=== PATIENT | female | born 1935 | race Caucasian/White ===

== ENCOUNTER 2016-12-13 14:04 | Inpatient (IN) | payer MEDICARE, BC ==
[2016-12-13] MEDS ORDERED: Polyethylene Glycol 3350 Powder 17 GM Packet PO PRN (14:48)
[2016-12-13] MEDS ORDERED: Tuberculin, PPD 5 Units/0.1 ML 1 ML MDV IDERM ONE (14:52)
[2016-12-13] MEDS: traMADol 50 MG Tab PO PRN ×2 (14:53→20:52)
[2016-12-13] MEDS ORDERED: SODIUM CHLORIDE EYEBOTH PRN (14:54)
--- NOTE | 2016-12-13 15:05 | PCM.HP ---
H&P History of Present Illness - General Date of Service: 12/13/16 Admit Problem/Dx: Admission Diagnosis/Problem Admission Diagnosis/Problem Pain management Source of Information: Patient History Limitations: Reports: No Limitations - History of Present Illness Initial Comments - Free Text/Narative: Pt is 81 year old female with PMH of HTN and Glaucoma, who has had Left knee replacement done by on 01/09/[address] [facility]. Pt has had uneventful post op period and has been doing her rehab well at [facility]. She is presently transferred to [facility] for swing bed level of care for Rehabilitation. Pt claims that her pain in the left knee is much better today. Has been weight bearing on the left knee. No fever or chills. No cough, shortness of breath or dysuria. Pt did have fluid over load post surgery and needed IV lasix as she was having nocturnal hypoxia. Pt has no dyspnea presently. Improves with: Reports: None Worsens with: Reports: None Associated Symptoms: Denies: Confusion, Cough, Fever/Chills, Headaches, Nausea/ Vomiting, Rash, Shortness of Breath, Weakness Left Middle Knee Pain Score (Numeric/FACES): 1 - Related Data Allergies/Adverse Reactions: Allergies Allergy/AdvReac Type Severity Reaction Status Date / Time Penicillins Allergy Itching Verified 09/10/15 20:24 Home Medications: Home Meds Benazepril [Lotensin] 5 mg PO BEDTIME 09/10/15 [History] Brimonidine Tartrate [Alphagan P 0.1% Ophth Soln] 1 drop DAILY 09/10/15 [History ] Hydrochlorothiazide [Hydrochlorothiazide] 25 mg PO DAILY 09/10/15 [History] Latanoprost [Latanoprost] 1 drop DAILY 09/10/15 [History] Past Medical History HEENT History: Reports: Cataract, Glaucoma, Impaired Vision Cardiovascular History: Reports: Heart Murmur, Hypertension Respiratory History: Reports: None Musculoskeletal History: Reports: Back Pain, Chronic - Infectious Disease History Infectious Disease History: Reports: Chicken Pox, Measles, Pertussis (Whooping Cough), Rheumatic Fever, Rubella - Past Surgical History HEENT Surgical History: Reports: Eye Surgery, Tonsillectomy Social & Family History - Tobacco Use Smoking Status *Q: Never Smoker Second Hand Smoke Exposure: No - Caffeine Use Caffeine Use: Reports: Coffee - Recreational Drug Use Recreational Drug Use: No H&P Review of Systems - Review of Systems: Review Of Systems: See Below General: Denies: Fever, Chills, Night Sweats HEENT: Denies: Rhinitis, Sinus Congestion, Sore Throat Pulmonary: Denies: Shortness of Breath, Wheezing, Cough, Sputum Cardiovascular: Denies: Chest Pain, Lightheadedness Gastrointestinal: Denies: Abdominal Pain, Nausea, Vomiting Genitourinary: Denies: Dysuria, Frequency Musculoskeletal: Denies: Neck Pain, Shoulder Pain, Joint Pain, Joint Swelling Skin: Denies: Pruritis, Rash Psychiatric: Denies: Confusion, Depression Neurological: Denies: Confusion, Dizziness, Headache Exam - Exam Exam: See Below - Vital Signs Vital Signs: Last Vital Signs Temp 97.8 F 12/13/16 14:10 Pulse 94 12/13/16 14:10 Resp 16 12/13/16 14:10 BP 152/73 H 12/13/16 14:10 Pulse Ox 94 L 12/13/16 14:10 Weight: 65.862 kg - Exam General: Alert, Oriented, 4 HEENT: PERRLA, Hearing Intact, Mucosa Moist & [place], Nares Patent, Normal Nasal Septum, Posterior Pharynx Clear, Conjunctiva Clear, EOMI, EACs Clear, TMs Clear Neck: Supple, Trachea Midline, 2 Lungs: Clear to Auscultation, Normal Respiratory Effort Cardiovascular: Regular Rate, Regular Rhythm Abdomen: Normal Bowel Sounds, Soft Back Exam: Normal Inspection, Full Range of Motion, NT Extremities: Edema, Other (left knee": there is dressing seen on the left knee.No bleeding or soaking. Pt does have good ROM with minimal pain. ) Peripheral Pulses: 2+: Radial (L), Radial (R) Neuro Extensive - Motor, Sensory, Reflexes: CN II-XII Intact, Normal Gait, Normal Reflexes *Q Meaningful Use (ADM) - VTE *Q VTE Criteria *Q: - Stroke *Q Stroke Criteria *Q: - AMI *Q AMI Criteria *Q: - Problem List (1) S/P knee replacement SNOMED Code(s): 289964477 ICD Code: Z96.659 - PRESENCE OF UNSPECIFIED ARTIFICIAL KNEE JOINT Status: Acute Current Visit: Yes Problem List Initiated/Reviewed/Updated: Yes Orders Last 24hrs: Active Orders 24 hr Category Date Time Status Patient Status [ADT] Routine ADT 12/13/16 14:52 Ordered OT Evaluation and Treatment [CONS] Routine Cons 12/13/16 14:52 Ordered PT Evaluation and Treatment [CONS] Routine Cons 12/13/16 14:52 Ordered Regular Diet [DIET] Diet 12/13/16 Dinner Ordered Acetaminophen [Tylenol Arthritis Pain] Med 12/13/16 14:51 Active 650 mg PO Q6H PRN Aspirin [Ecotrin] Med 12/14/16 08:00 Active 325 mg PO DAILY Benazepril [Lotensin] Med 12/13/16 20:00 Ordered 5 mg PO BEDTIME Benazepril [Lotensin] Med 12/14/16 08:00 Active 5 mg PO DAILY Brimonidine Tartrate [Alphagan P 0.1% Ophth Soln] Med 12/14/16 08:00 Ordered 1 drop EYEBOTH DAILY Calcium Carbonate/Vitamin D3 [Caltrate 600+D 1500 MG- Med 12/14/16 08:00 Active 400 Units] 1 tab PO DAILY Docusate Sodium/Sennosides [Senna Plus] Med 12/13/16 14:49 Active 0 - 2 tab PO DAILY PRN Hydrochlorothiazide Med 12/14/16 08:00 Active 25 mg PO DAILY Hydrochlorothiazide Med 12/14/16 08:00 Ordered 25 mg PO DAILY Latanoprost [Xalatan 0.005% Ophth Soln] Med 12/13/16 20:00 Active 0 - 1 ml EYEBOTH BEDTIME Latanoprost [Xalatan 0.005% Ophth Soln] Med 12/14/16 08:00 Ordered 1 drop EYEBOTH DAILY Lutein/Minerals/Vit A,C & E [Ocuvite] Med 12/14/16 08:00 Active 1 each PO DAILY Non-Formulary Medication [NF Drug] Med 12/13/16 14:54 Active 0 - 1 each EYEBOTH BEDTIME PRN Non-Formulary Medication [NF Drug] Med 12/14/16 08:00 Active 0 - 1 each EYEBOTH DAILY Polyethylene Glycol 3350 [MiraLAX] Med 12/13/16 14:48 Active 17 gm PO DAILY PRN Tuberculin, PPD [Aplisol] Med 12/13/16 14:52 Once 5 unit IDERM ONETIME ONE traMADol [Ultram] Med 12/13/16 14:36 Active 50 mg PO Q6H PRN Resuscitation Status Routine Resus Stat 12/13/16 14:52 Ordered Medication Orders Acetaminophen (Tylenol Arthritis Pain) 650 mg PO Q6H PRN PRN Reason: MILD PAIN Aspirin (Ecotrin) 325 mg PO DAILY GABBIE Benazepril HCl (Lotensin) 5 mg PO DAILY GABBIE Brimonidine Tartrate (Alphagan P 0.1% Ophth Soln) ml EYEBOTH DAILY GABBIE Calcium Carbonate (Caltrate 600+D 1500 Mg-400 Units) 1 tab PO DAILY GABBIE Hydrochlorothiazide (Hydrochlorothiazide) 25 mg PO DAILY GABBIE Hydrochlorothiazide (Hydrochlorothiazide) 25 mg PO DAILY GABBIE Latanoprost (Xalatan 0.005% Ophth Soln) 0 - 1 ml EYEBOTH BEDTIME GABBIE Latanoprost (Xalatan 0.005% Ophth Soln) ml EYEBOTH DAILY GABBIE Multivitamins/Minerals (Ocuvite) 1 each PO DAILY GABBIE Sodium Chloride (Ointment) 0 - 1 each EYEBOTH BEDTIME PRN PRN Reason: EYE Brimonidine 0.2% (Solution) 0 - 1 each EYEBOTH DAILY GABBIE Non-Formulary Medication (Benazepril [Lotensin]) 5 mg PO BEDTIME GABBIE Polyethylene Glycol (Miralax) 17 gm PO DAILY PRN PRN Reason: CONSTIPATION Senna/Docusate Sodium (Senna Plus) 0 - 2 tab PO DAILY PRN PRN Reason: CONSTIPATION Tramadol HCl (Ultram) 50 mg PO Q6H PRN PRN Reason: MODERATE PAIN Last Admin: 12/13/16 14:53 Dose: 50 mg Tuberculin PPD (Aplisol) 5 unit IDERM ONETIME ONE Stop: 12/13/16 14:53 Assessment/Plan Comment:: Assessment: S/P left knee replacement admitted under swing bed for rehabilitation. Plan: Pt is clinically doing well. Plan is to admit under swing bed. Start OT and PT. She has very good Rehab potential. Once she has reached strength to walk without discomfort and able to ADLs without pain, Will have her discharge home. Plan is to stop oxycodone and keep her tramadol for pain control. Also will monitor nocturnal pulse oxy and will only start oxygen if her SPO2 drops below 92%. Advised to use intensive spirometry every 2-3 hrs to prevent pneumonia.
[2016-12-13] MEDS ORDERED: BENAZEPRIL 5 MG PO SCH (20:00)
[2016-12-13] MEDS: Latanoprost 0.005% Ophth Soln 2.5 ML Bottle EYEBOTH SCH (20:13)
[2016-12-13] MEDS: Acetaminophen 650 MG Tab.ER PO PRN (20:51)
[2016-12-14] MEDS: BRIMONIDINE 0.2% EYEBOTH SCH (07:34)
[2016-12-14] MEDS: Calcium Carbonate/Vitamin D3 1500 MG-400 Units Tab PO SCH (07:34)
[2016-12-14] MEDS: Benazepril 10 MG Tab PO SCH (07:35)
[2016-12-14] MEDS: Hydrochlorothiazide 25 MG Tab PO SCH (07:35)
[2016-12-14] MEDS: Aspirin 325 MG Tab.EC PO SCH (07:35)
[2016-12-14] MEDS: Lutein/Minerals/Vitamins A, C & E Tab PO SCH (07:36)
[2016-12-14] MEDS: traMADol 50 MG Tab PO PRN ×2 (07:36→20:03)
[2016-12-14] MEDS: Acetaminophen 650 MG Tab.ER PO PRN ×3 (07:37→20:11)
[2016-12-14] MEDS ORDERED: Latanoprost 0.005% Ophth Soln 2.5 ML Bottle EYEBOTH SCH (08:00)
[2016-12-14] MEDS ORDERED: Hydrochlorothiazide 25 MG Tab PO SCH (08:00)
[2016-12-14] MEDS ORDERED: Brimonidine 0.1% Ophth Soln 5 ML Bottle EYEBOTH SCH (08:00)
[2016-12-14] MEDS: Latanoprost 0.005% Ophth Soln 2.5 ML Bottle EYEBOTH SCH (20:06)
[2016-12-14] MEDS: SODIUM CHLORIDE EYEBOTH PRN (20:28)
[2016-12-14] MEDS ORDERED: Metoprolol Tartrate 25 MG Tab PO ONE (22:11)
[2016-12-15] MEDS: traMADol 50 MG Tab PO PRN ×4 (02:32→23:43)
[2016-12-15] MEDS: Acetaminophen 650 MG Tab.ER PO PRN ×2 (08:15→20:21)
[2016-12-15] MEDS: Hydrochlorothiazide 25 MG Tab PO SCH (08:17)
[2016-12-15] MEDS: Lutein/Minerals/Vitamins A, C & E Tab PO SCH (08:17)
[2016-12-15] MEDS: Calcium Carbonate/Vitamin D3 1500 MG-400 Units Tab PO SCH (08:17)
[2016-12-15] MEDS: Aspirin 325 MG Tab.EC PO SCH (08:17)
[2016-12-15] MEDS: Benazepril 10 MG Tab PO SCH ×2 (08:17→09:38)
[2016-12-15] MEDS: BRIMONIDINE 0.2% EYEBOTH SCH (08:26)
[2016-12-15] MEDS: Latanoprost 0.005% Ophth Soln 2.5 ML Bottle EYEBOTH SCH (20:25)
[2016-12-16] MEDS: traZODone 100 MG Tab PO PRN ×2 (00:21→20:44)
[2016-12-16] MEDS: Hydrochlorothiazide 25 MG Tab PO SCH (07:49)
[2016-12-16] MEDS: Benazepril 10 MG Tab PO SCH (07:50)
[2016-12-16] MEDS: Lutein/Minerals/Vitamins A, C & E Tab PO SCH (07:50)
[2016-12-16] MEDS: Aspirin 325 MG Tab.EC PO SCH (07:50)
[2016-12-16] MEDS: Calcium Carbonate/Vitamin D3 1500 MG-400 Units Tab PO SCH (07:50)
[2016-12-16] MEDS: traMADol 50 MG Tab PO PRN ×3 (07:55→20:44)
[2016-12-16] MEDS: BRIMONIDINE 0.2% EYEBOTH SCH (09:47)
[2016-12-16] MEDS: Latanoprost 0.005% Ophth Soln 2.5 ML Bottle EYEBOTH SCH (20:43)
[2016-12-16] MEDS: Acetaminophen 650 MG Tab.ER PO PRN (20:43)
[2016-12-17] MEDS: Acetaminophen 650 MG Tab.ER PO PRN ×2 (01:53→20:14)
[2016-12-17] MEDS: Aspirin 325 MG Tab.EC PO SCH (07:41)
[2016-12-17] MEDS: Lutein/Minerals/Vitamins A, C & E Tab PO SCH (07:41)
[2016-12-17] MEDS: Calcium Carbonate/Vitamin D3 1500 MG-400 Units Tab PO SCH (07:41)
[2016-12-17] MEDS: Hydrochlorothiazide 25 MG Tab PO SCH (07:41)
[2016-12-17] MEDS: Benazepril 10 MG Tab PO SCH (07:41)
[2016-12-17] MEDS: BRIMONIDINE 0.2% EYEBOTH SCH (07:43)
[2016-12-17] MEDS: traMADol 50 MG Tab PO PRN ×3 (12:37→22:40)
[2016-12-17] MEDS: Latanoprost 0.005% Ophth Soln 2.5 ML Bottle EYEBOTH SCH (20:14)
[2016-12-17] MEDS: traZODone 100 MG Tab PO PRN (22:41)
[2016-12-18] MEDS: traMADol 50 MG Tab PO PRN ×4 (06:39→23:49)
[2016-12-18] MEDS: Benazepril 10 MG Tab PO SCH (07:59)
[2016-12-18] MEDS: Calcium Carbonate/Vitamin D3 1500 MG-400 Units Tab PO SCH (07:59)
[2016-12-18] MEDS: Hydrochlorothiazide 25 MG Tab PO SCH (07:59)
[2016-12-18] MEDS: BRIMONIDINE 0.2% EYEBOTH SCH (07:59)
[2016-12-18] MEDS: Aspirin 325 MG Tab.EC PO SCH (08:00)
[2016-12-18] MEDS: Lutein/Minerals/Vitamins A, C & E Tab PO SCH (08:00)
[2016-12-18] MEDS: Acetaminophen 650 MG Tab.ER PO PRN (21:14)
[2016-12-18] MEDS: Latanoprost 0.005% Ophth Soln 2.5 ML Bottle EYEBOTH SCH (21:14)
[2016-12-18] MEDS: traZODone 100 MG Tab PO PRN (23:49)
[2016-12-19] MEDS: Benazepril 10 MG Tab PO SCH (07:39)
[2016-12-19] MEDS: Hydrochlorothiazide 25 MG Tab PO SCH (07:39)
[2016-12-19] MEDS: Aspirin 325 MG Tab.EC PO SCH (07:39)
[2016-12-19] MEDS: Calcium Carbonate/Vitamin D3 1500 MG-400 Units Tab PO SCH (07:39)
[2016-12-19] MEDS: Lutein/Minerals/Vitamins A, C & E Tab PO SCH (07:40)
[2016-12-19] MEDS: BRIMONIDINE 0.2% EYEBOTH SCH (07:43)
[2016-12-19] MEDS: traMADol 50 MG Tab PO PRN (10:01)
[2016-12-19] MEDS: Acetaminophen 650 MG Tab.ER PO PRN (16:55)
[2016-12-19] MEDS: Latanoprost 0.005% Ophth Soln 2.5 ML Bottle EYEBOTH SCH (21:31)
[2016-12-20] MEDS: Acetaminophen 650 MG Tab.ER PO PRN (00:35)
[2016-12-20] MEDS: traZODone 100 MG Tab PO PRN (00:35)
[2016-12-20] MEDS: Aspirin 325 MG Tab.EC PO SCH (07:44)
[2016-12-20] MEDS: Hydrochlorothiazide 25 MG Tab PO SCH (07:44)
[2016-12-20] MEDS: Calcium Carbonate/Vitamin D3 1500 MG-400 Units Tab PO SCH (07:44)
[2016-12-20] MEDS: Benazepril 10 MG Tab PO SCH (07:44)
[2016-12-20 07:47] VITALS: BP 150/77
[2016-12-20] MEDS: SODIUM CHLORIDE EYEBOTH PRN (07:51)
[2016-12-20] MEDS: BRIMONIDINE 0.2% EYEBOTH SCH (07:56)
[2016-12-20] MEDS: Lutein/Minerals/Vitamins A, C & E Tab PO SCH (08:02)
--- NOTE | 2016-12-26 09:42 | PCM.DCSUM1 ---
Discharge Summary - Discharge Data Discharge Date: 12/20/16 Discharge Disposition: Home, Self-Care 01 Condition: Good - Patient Summary/Data Consults: Consultations 12/13/16 14:52 OT Evaluation and Treatment [CONS] Routine Please Evaluate and Treat. OT Reason for Consult: ADL's This query below is only for informational purposes and is not editable. Admission Diagnosis/Problem: Pain management PT Evaluation and Treatment [CONS] Routine Please Evaluate and Treat. PT Reason for Consult: Ambulation This query below is only for informational purposes and is not editable. Admission Diagnosis/Problem: Pain management - Patient Instructions Diet: Usual Diet as Tolerated - Discharge Plan Prescriptions/Med Rec: Aspirin [Ecotrin] 325 mg PO DAILY #30 tab.ec Benazepril [Lotensin] 10 mg PO DAILY #30 tablet Polyethylene Glycol 3350 [MiraLAX] 17 gm PO DAILY #30 packet traMADol [Ultram] 50 mg PO Q6H PRN #30 tablet PRN Reason: Pain traZODone 50 mg PO BEDTIME PRN #30 tablet PRN Reason: Sleep Home Medications: Home Meds Benazepril [Lotensin] 5 mg PO BEDTIME 09/10/15 [History] Brimonidine Tartrate [Alphagan P 0.1% Oph Soln] 1 drop DAILY 09/10/15 [History ] Hydrochlorothiazide [Hydrochlorothiazide] 25 mg PO DAILY 09/10/15 [History] Latanoprost [Latanoprost] 1 drop DAILY 09/10/15 [History] Acetaminophen [Tylenol Arthritis Pain] 650 mg PO Q6H PRN #0 tab.er 12/20/16 [Rx] Acetaminophen [Tylenol Arthritis] 650 mg PO Q6H PRN 12/20/16 [History] Aspirin [Ecotrin] 325 mg PO DAILY #30 tab.ec 12/20/16 [Rx] Aspirin/Calcium Carbonate/Mag [Aspirin Buffered 325 mg Tab] 325 mg PO DAILY [History] Benazepril [Lotensin] 10 mg PO DAILY #30 tablet 12/20/16 [Rx] Calcium Carbonate/Vitamin D3 [Calcium Carbonate/Vitamin D 1500 MG-200 Unit] 1 tab PO DAILY 12/20/16 [History] Calcium Carbonate/Vitamin D3 [Caltrate 600+D 1500 MG-400 Units] 1 tab PO DAILY tablet 12/20/16 [Rx] Docusate Sodium/Sennosides [Senna Plus] 0 - 2 tab PO DAILY PRN #0 tablet [Rx] Hydrochlorothiazide 25 mg PO DAILY tablet 12/20/16 [Rx] Latanoprost [Xalatan 0.005% Ophth Soln] 0 - 1 ml EYEBOTH BEDTIME bottle [Rx] Lutein/Min/Vit C/Vit E Acetate [Ocuvite Lutein] 1 cap PO DAILY 12/20/16 [History ] Lutein/Minerals/Vit A,C & E [Ocuvite] 1 each PO DAILY tablet 12/20/16 [Rx] Non-Formulary Medication [NF Drug] 1 each EYEBOTH BEDTIME PRN #0 each 12/20/16 [ Rx] Non-Formulary Medication [NF Drug] 1 each EYEBOTH DAILY each 12/20/16 [Rx] Polyethylene Glycol 3350 [MiraLAX] 17 gm PO DAILY #30 packet 12/20/16 [Rx] Polyethylene Glycol 3350 [Miralax] 17 gm PO DAILY 12/20/16 [History] traMADol [Ultram] 50 mg PO Q6H PRN #30 tablet 12/20/16 [Rx] traZODone 50 mg PO BEDTIME 12/20/16 [History] traZODone 50 mg PO BEDTIME PRN #30 tablet 12/20/16 [Rx] - Discharge Summary/Plan Comment DC Time >30 min.: Yes Discharge Summary/Plan Comment: Patient counseled on discharge instructions. Patient to f/u Friday for suture removal. Discussed close monitoring and f/u as needed in clinic or ER as required. - Patient Data Vitals - Most Recent: Last Vital Signs Temp 36.4 C 12/20/16 08:16 Pulse 87 12/20/16 08:16 Resp 18 12/20/16 08:16 BP 150/77 H 12/20/16 08:16 Pulse Ox 95 12/20/16 08:16 Weight - Most Recent: 65.771 kg Med Orders - Current: Current Medications Discontinued Medications Acetaminophen (Tylenol Arthritis Pain) 650 mg PO Q6H PRN PRN Reason: MILD PAIN Last Admin: 12/20/16 00:35 Dose: 650 mg Aspirin (Ecotrin) 325 mg PO DAILY GABBIE Last Admin: 12/20/16 07:44 Dose: 325 mg Benazepril HCl (Lotensin) 5 mg PO DAILY [facility] Last Admin: 12/15/16 09:38 Dose: 5 mg Benazepril HCl (Lotensin) 10 mg PO DAILY [facility] Last Admin: 12/20/16 07:44 Dose: 10 mg Calcium Carbonate (Caltrate 600+D 1500 Mg-400 Units) 1 tab PO DAILY [facility] Last Admin: 12/20/16 07:44 Dose: 1 tab Hydrochlorothiazide (Hydrochlorothiazide) 25 mg PO DAILY [facility] Last Admin: 12/20/16 07:44 Dose: 25 mg Latanoprost (Xalatan 0.005% Ophth Soln) 0 - 1 ml EYEBOTH BEDTIME [facility] Last Admin: 12/19/16 21:31 Dose: 1 drop Metoprolol Tartrate (Lopressor) 25 mg PO ONETIME ONE Stop: 12/14/16 22:12 Last Admin: 12/14/16 22:24 Dose: 25 mg Multivitamins/Minerals (Ocuvite) 1 each PO DAILY [facility] Last Admin: 12/20/16 08:02 Dose: 1 each Sodium Chloride (Ointment) 0 - 1 each EYEBOTH BEDTIME PRN PRN Reason: EYE Brimonidine 0.2% (Solution) 1 each EYEBOTH DAILY [facility] Last Admin: 12/20/16 07:56 Dose: 1 each Sodium Chloride (Ointment) 1 each EYEBOTH BEDTIME PRN PRN Reason: EYE Last Admin: 12/20/16 07:51 Dose: 1 each Polyethylene Glycol (Miralax) 17 gm PO DAILY PRN PRN Reason: CONSTIPATION Last Admin: 12/15/16 08:21 Dose: 17 gm Senna/Docusate Sodium (Senna Plus) 0 - 2 tab PO DAILY PRN PRN Reason: CONSTIPATION Last Admin: 12/16/16 20:43 Dose: 1 tab Tramadol HCl (Ultram) 50 mg PO Q6H PRN PRN Reason: MODERATE PAIN Last Admin: 12/19/16 10:01 Dose: 50 mg Trazodone HCl (Trazodone) 50 mg PO BEDTIME PRN PRN Reason: Insomnia Last Admin: 12/20/16 00:35 Dose: 50 mg Tuberculin PPD (Aplisol) 5 unit IDERM ONETIME ONE Stop: 12/13/16 14:53 Last Admin: 12/14/16 09:38 Dose: 5 unit *Q Meaningful Use (DIS) - VTE *Q VTE Criteria *Q: - Stroke *Q Stroke Criteria *Q: - AMI *Q AMI Criteria *Q:
== END 2016-12-20 10:50 | disposition home or self-care (01) | DRG 561 ==
LOC: LB.MS 14:04
PROVIDERS: ADMIT Family Medicine; ATTEND Family Medicine
DX: Z47.1 Aftercare following joint replacement surgery (principal); Z98.890 Other specified postprocedural states; Z96.652 Presence of left artificial knee joint; I10 Essential (primary) hypertension; H40.9 Unspecified glaucoma; Z88.0 Allergy status to penicillin; H54.7 Unspecified visual loss; Z79.82 Long term (current) use of aspirin; M54.9 Dorsalgia, unspecified; G89.29 Other chronic pain; Z11.1 Encounter for screening for respiratory tuberculosis
CPT/HCPCS: 86580; 97110-GP; 97116-GP; 97140-GP; 97161-GP; 97165-GO; 97530-GO; 97535-GO; A9270-GY

== ENCOUNTER 2017-10-22 13:38 | Emergency (ER) | payer MEDICARE, BC ==
[2017-10-22] MEDS ORDERED: Ibuprofen 400 MG Tab PO ONE (14:01)
[2017-10-22] MEDS ORDERED: Methocarbamol 500 MG Tab PO ONE (14:01)
[2017-10-22 14:44] VITALS: BP 154/80
--- NOTE | 2017-10-23 07:23 | ER ---
DATE OF SERVICE: 10/22/2017 HPI: An 82-year-old lady here with complaints of back pain on the right side in the mid back area that seems to radiate around the flank area. 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 She went home and rested and then it got better. Today, she went back to the same activity and her pain reoccurred, but it is worse today. She states that she has had a little bit of dysuria at times, but has not noticed any blood in her urine. She has not been running a fever. She has not had any falls or injuries and denies any problems with shortness of breath, nausea, or vomiting. OBJECTIVE: GENERAL APPEARANCE: The patient is awake and alert. She is in no obvious distress. Vital signs are reviewed. Blood pressure is initially 189/88, pulse 81, she is afebrile, O2 sats are 98%. LUNGS: Clear. The patient does have tenderness in the mid back area on the right side. The paraspinal muscles in this area are slightly swollen and tight. They are not discolored. They are tender with palpation. There is no rash. The pain seems fairly localized to the paraspinal muscles at this time. ABDOMEN: Soft, nontender. Bowel sounds are present. SKIN: Warm and dry. LAB AND X-RAY STUDIES: CBC is unremarkable. Metabolic panel is also unremarkable. UA shows some subtle changes, but not enough to qualify for UTI. The patient was given Robaxin 500 mg p.o. as well as Motrin 400 mg p.o. while waiting for the lab results, and we applied an ice pack to her midback area. She states that she is feeling much better after about 45 minutes. DIAGNOSIS: Muscle strain with spasm involving the midback area. TREATMENT PLAN: The patient is to either refrain from that activity or do it from a different position over the next few days. I will keep her on Robaxin 500 mg t.i.d. for 5 more days. She can take Aleve twice a day for 3 or 4 days and then as needed. She is to apply ice frequently to the area of pain for the next couple of days and then start alternating with heat, switching over the heat within 3 or 4 days. Her blood pressure was rechecked a second time with a reading of 154/80. Followup is p.r.n. The patient has no further questions. CRS/MODL /[id number] MTDGertrudis
== END 2017-10-22 15:02 | disposition home or self-care (01) ==
LOC: LB.ED 13:38
DX: S29.012A Strain of muscle and tendon of back wall of thorax, initial encounter (principal); X58.XXXA Exposure to other specified factors, initial encounter; Y99.0 Civilian activity done for income or pay
CPT/HCPCS: 36415; 80048; 81001; 85025; 99283; A9270-GY

== ENCOUNTER 2019-05-05 21:43 | Emergency (ER) | payer MEDICARE, BC ==
[2019-05-05 22:49] VITALS: BP 161/93; PULSE 83
--- NOTE | 2019-05-06 08:18 | EDM.PDOC ---
ED HPI GENERAL MEDICAL PROBLEM - General Chief Complaint: Cardiovascular Problem Stated Complaint: INCREASED BP Time Seen by Provider: 05/05/19 22:00 Source of Information: Reports: Patient History Limitations: Reports: No Limitations - History of Present Illness INITIAL COMMENTS - FREE TEXT/NARRATIVE: This is a pleasant 83yo F here for increased BP. She has recently bought a new BP cuff and notes an elevated BP and when she repeated it multiple times her BP continued to rise. She states it was up to 200/100's. She denies any headache or other symptoms. She was recently at the [employer] for activities and got home. Duration: Hour(s): Location: Reports: Generalized - Related Data Allergies Allergy/AdvReac Type Severity Reaction Status Date / Time Penicillins Allergy Itching Verified 10/22/17 13:52 Home Meds: Home Meds Brimonidine Tartrate [Alphagan P 0.1% Ophth Soln] 1 drop EYEBOTH DAILY 09/10/15 [History] Latanoprost 1 drop EYEBOTH QPM 09/10/15 [History] Benazepril [Lotensin] 10 mg PO DAILY #30 tablet 12/20/16 [Rx] Hydrochlorothiazide 25 mg PO DAILY tablet 12/20/16 [Rx] Lutein/Minerals/Vit A,C & E [Ocuvite] 1 each PO DAILY tablet 12/20/16 [Rx] Calcium Carb/Magnesium Hydrox [Antacid Chewable Tablet] 1 tab PO DAILY 10/22/17 [History] Cholecalciferol (Vitamin D3) [Vitamin D3] 400 unit PO DAILY 10/22/17 [History] Past Medical History HEENT History: Reports: Cataract, Glaucoma, Impaired Vision Cardiovascular History: Reports: Heart Murmur, Hypertension Respiratory History: Reports: None Gastrointestinal History: Reports: None Genitourinary History: Reports: None CLINICAL ACCOUNT LIAISON History: Reports: None Musculoskeletal History: Reports: Back Pain, Chronic, Osteoarthritis Neurological History: Reports: Migraines Endocrine/Metabolic History: Reports: None Oncologic (Cancer) History: Reports: None - Infectious Disease History Infectious Disease History: Reports: Chicken Pox, Measles, Pertussis (Whooping Cough), Rheumatic Fever, Rubella - Past Surgical History HEENT Surgical History: Reports: Cataract Surgery, Tonsillectomy GI Surgical History: Reports: Appendectomy Female Surgical History: Reports: D&C Musculoskeletal Surgical History: Reports: Knee Replacement, Other (See Below) Other Musculoskeletal Surgeries/Procedures:: Trigger finger release bilterally Social & Family History - Family History Family Medical History: Noncontributory - Tobacco Use Smoking Status *Q: Never Smoker Second Hand Smoke Exposure: No - Caffeine Use Caffeine Use: Reports: Coffee - Recreational Drug Use Recreational Drug Use: No ED ROS GENERAL - Review of Systems Review Of Systems: ROS reveals no pertinent complaints other than HPI. ED EXAM, GENERAL - Physical Exam Exam: See Below Exam Limited By: No Limitations General Appearance: Alert, WD/WN, No Apparent Distress Eye Exam: Bilateral Eye: EOMI, PERRL Ears: Normal External Exam Nose: Normal Inspection Throat/Mouth: Normal Inspection Head: Atraumatic, Normocephalic Neck: Normal Inspection, Supple, Non-Tender Respiratory/Chest: No Respiratory Distress, Lungs Clear Cardiovascular: Normal Peripheral Pulses, Regular Rate, Rhythm GI/Abdominal: Normal Bowel Sounds Neurological: Alert, Oriented, CN II-XII Intact Course - Vital Signs Last Recorded V/S: Last Vital Signs Temp 36.4 C 05/05/19 22:11 Pulse 83 05/05/19 22:15 Resp 18 05/05/19 22:15 BP 161/93 H 05/05/19 22:15 Pulse Ox 98 05/05/19 22:15 Departure - Departure Time of Disposition: 22:30 Disposition: Home, Self-Care 01 Condition: Good Clinical Impression: Hypertension Qualifiers: Hypertension type: essential hypertension Qualified Code(s): I10 - Essential ( primary) hypertension Instructions: Hypertension, [id number] Referrals: PCP,None [Primary Care Provider] - Forms: ED Department Discharge - Problem List & Annotations (1) Hypertension SNOMED Code(s): 10238418 Code(s): I10 - ESSENTIAL (PRIMARY) HYPERTENSION Status: Acute Priority: High Qualifiers: Hypertension type: essential hypertension Qualified Code(s): I10 - Essential (primary) hypertension - Problem List Review Problem List Initiated/Reviewed/Updated: Yes - Assessment/Plan Plan: Patient to follow up in clinic and bring in meds/supplements and new BP cuff for evaluation and recheck. RTC or ER as directed and as needed.
== END 2019-05-05 22:28 | disposition home or self-care (01) ==
LOC: LB.ED 21:43
DX: I10 Essential (primary) hypertension (principal); Z88.0 Allergy status to penicillin; Z79.899 Other long term (current) drug therapy
CPT/HCPCS: 99282; 99283

== ENCOUNTER → 2019-06-23 | Outpatient (CLI) | payer MEDICARE, BC | LOC: LB.CLINIC 10:48 | PROVIDERS: ATTEND Family Medicine | DX: R19.7 Diarrhea, unspecified (principal) | CPT/HCPCS: 87177; 87209 ==

== ENCOUNTER 2020-04-17 07:27 | Emergency (ER) | payer MEDICARE, BC ==
[2020-04-17] MEDS ORDERED: Acetaminophen 325 MG Tab PO ONE (07:57)
--- NOTE | 2020-04-17 08:01 | EDM.PDOC ---
ED HPI GENERAL MEDICAL PROBLEM - General Chief Complaint: Lower Extremity Injury/Pain Stated Complaint: KNEE PAIN / DIZZINESS Time Seen by Provider: 04/17/20 07:45 Source of Information: Reports: Patient History Limitations: Reports: No Limitations - History of Present Illness INITIAL COMMENTS - FREE TEXT/NARRATIVE: Patient is an 84 y/o female who presents for right knee pain and dizziness. She was dizziness last night and fell onto her right knee. Patient was able to get up after the injury with her walker and went to bed. Her knee is hurting worse this morning. She denies any head injury, LOC, N/V/D, chest pain, shortness of breath, abdominal pain, or dysuria. 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 Musculoskeletal History: Reports: Back Pain, Chronic, Osteoarthritis Neurological History: Reports: Migraines Endocrine/Metabolic History: Reports: None Oncologic (Cancer) History: Reports: None - Infectious Disease History Infectious Disease History: Reports: Chicken Pox, Measles, Pertussis (Whooping Cough), Rheumatic Fever, Rubella - Past Surgical History HEENT Surgical History: Reports: Cataract Surgery, Tonsillectomy GI Surgical History: Reports: Appendectomy Female Surgical History: Reports: D&C Musculoskeletal Surgical History: Reports: Knee Replacement, Other (See Below) Other Musculoskeletal Surgeries/Procedures:: Trigger finger release bilterally Social & Family History - Family History Family Medical History: Noncontributory - Caffeine Use Caffeine Use: Reports: Coffee Review of Systems - Review of Systems Review Of Systems: See Below Constitutional: Reports: No Symptoms Eyes: Reports: No Symptoms Ears: Reports: Dizziness Nose: Reports: No Symptoms Mouth/Throat: Reports: No Symptoms Respiratory: Reports: No Symptoms Cardiovascular: Reports: No Symptoms GI/Abdominal: Reports: No Symptoms Genitourinary: Reports: No Symptoms Musculoskeletal: Reports: Other (right knee pain) Skin: Reports: No Symptoms ED EXAM, GENERAL - Physical Exam Exam: See Below Exam Limited By: No Limitations General Appearance: Alert, No Apparent Distress Eye Exam: Bilateral Eye: EOMI, PERRL Ears: Normal External Exam, Normal Canal Ear Exam: Bilateral Ear: Other (bilateral clear effusions) Nose: Normal Inspection Head: Atraumatic, Normocephalic Neck: Normal Inspection, Supple, Non-Tender, Full Range of Motion Respiratory/Chest: No Respiratory Distress, Lungs Clear, Normal Breath Sounds, No Accessory Muscle Use, Chest Non-Tender Cardiovascular: Normal Peripheral Pulses, Regular Rate, Rhythm, No Edema, No Murmur Extremities: Joint Swelling (right knee swelling), Limited Range of Motion (able to flex knee, but has pain) Neurological: Alert, Oriented, CN II-XII Intact, Normal Cognition, No Motor/Sensory Deficits Skin Exam: Warm, Dry, Intact, Normal Color, No Rash EKG INTERPRETATION EKG Date: 04/17/20 Time: 08:14 Rhythm: NSR Rate (Beats/Min): 89 [place]: Normal P-Wave: Present QRS: Normal ST-T: Normal QT: Normal Course - Vital Signs Text/Narrative:: All labs and imaging unremarkable. Nursing staff found patient was taking too much of her BP medication and that may explain her dizziness prior to the fall. Will cut her pills in half to give her the prior dose. Follow up with DR Aden. Last Recorded V/S: Last Vital Signs Temp 36.2 C 04/17/20 07:28 Pulse 92 04/17/20 07:28 Resp 16 04/17/20 07:28 BP 161/71 H 04/17/20 07:45 Pulse Ox 98 04/17/20 07:28 - Orders/Labs/Meds Orders: Active Orders 24 hr Category Date Time Status EKG Documentation Completion [RC] ASDIRECTED Care 04/17/20 07:53 Active UA RFX YAMILKA AND CULT IF INDIC [URIN] Stat Lab 04/17/20 07:52 Ordered EKG 12 Lead [EK] Stat Ther 04/17/20 07:52 Ordered Labs: Laboratory Tests 04/17/20 04/17/20 Range/Units 07:52 07:52 WBC 9.1 D (4.0-11.0) K/uL RBC 4.83 (3.80-5.80) M/uL Hgb 14.1 (11.5-16.5) g/dL Hct 43.7 (37.0-47.0) % MCV 91 (76-96) fL MCH 29.2 (27.0-32.0) pg MCHC 32.3 (31.0-35.0) g/dL RDW 14.3 (11.0-16.0) % Plt Count 194 (150-500) K/uL MPV 10.9 H (6.0-10.0) fL Neut % (Auto) 78.0 H (45.0-70.0) % Lymph % (Auto) 12.3 L (20.0-40.0) % [place] % (Auto) 7.2 (3.0-10.0) % Eos % (Auto) 2.3 (1.0-5.0) % Baso % (Auto) 0.2 (0.0-0.5) % Neut # (Auto) 7.08 (2.00-7.50) K/uL Lymph # (Auto) 1.12 L (1.50-4.00) K/uL [place] # (Auto) 0.65 (0.20-0.80) K/uL Eos # (Auto) 0.21 (0.04-0.40) K/uL Baso # (Auto) 0.02 (0.02-0.10) K/uL Sodium 139 (136-145) mmol/L Potassium 3.7 (3.5-5.1) mmol/L Chloride 105 (98-107) mmol/L Carbon Dioxide 25.6 D (21.0-32.0) mmol/L Anion Gap 12.1 (5.0-15.0) mmol/L BUN 20 D (8-26) mg/dL Creatinine 0.84 (0.55-1.02) mg/dL Est Cr Clr Drug Dosing 43.82 mL/min Estimated GFR (MDRD) > 60 (>60) MLS/MIN BUN/Creatinine Ratio 23.8 (6-25) Glucose 122 H (74-100) mg/dL Calcium 9.1 (8.5-10.1) mg/dL Total Bilirubin 0.3 (0.0-1.0) mg/dL AST 16 (15-37) U/L ALT 23 (12-78) U/L Alkaline Phosphatase 75 (46-116) U/L Troponin I < 0.017 (0.000-0.060) ng/mL Total Protein 6.3 L (6.4-8.2) g/dL Albumin 3.5 (3.4-5.0) g/dL Globulin 2.8 (2.2-4.2) g/dL Albumin/Globulin Ratio 1.2 (0.8-2.0) Meds: Medications Discontinued Medications Generic Name Dose Route Start Last Admin Trade Name Yared PRN Reason Stop Dose Admin Acetaminophen 650 mg 04/17/20 07:57 04/17/20 07:53 Tylenol PO 04/17/20 07:58 650 mg NOW ONE Administration Departure - Departure Time of Disposition: 09:40 Disposition: Home, Self-Care 01 Condition: Good Clinical Impression: Dizziness - Discharge Information *PRESCRIPTION DRUG MONITORING PROGRAM REVIEWED*: Not Applicable *COPY OF PRESCRIPTION DRUG MONITORING REPORT IN PATIENT TARA: Not Applicable Instructions: Dizziness, Knee Sprain, Adult, [place] Forms: ED Department Discharge Sepsis Event Note (ED) - Focused Exam Vital Signs: Vital Signs Temp Pulse Resp BP Pulse Ox 04/17/20 07:45 161/71 H 04/17/20 07:28 36.2 C 92 16 191/87 H 98 - My Orders Last 24 Hours: My Active Orders 04/17/20 07:52 UA RFX YAMILKA AND CULT IF INDIC [URIN] Stat EKG 12 Lead [EK] Stat 04/17/20 07:53 EKG Documentation Completion [RC] ASDIRECTED - Assessment/Plan Last 24 Hours: My Active Orders 04/17/20 07:52 UA RFX YAMILKA AND CULT IF INDIC [URIN] Stat EKG 12 Lead [EK] Stat 04/17/20 07:53 EKG Documentation Completion [RC] ASDIRECTED
--- NOTE | 2020-04-17 09:13 | CR ---
Date of Service: 04/17/20 Clinical Data: dizziness AP CHEST: The heart size is normal. There is calcification of the aortic arch. The lungs are clear. No pneumothorax. No pleural effusions. No evidence of acute intrathoracic disease. [id number] MTDD
--- NOTE | 2020-04-17 09:15 | CR ---
Date of Service: 04/17/20 Clinical Data: fall; right knee pain RIGHT KNEE: No priors. There are mild tricompartment osteoarthritic changes of the knee joint with mild narrowing of the medial compartment joint space. There is a small joint effusion. No acute abnormalities. No lytic or blastic bone lesions. [facility]
[2020-04-17 16:06] VITALS: PULSE 87
[2020-04-17 16:07] VITALS: BP 131/68
== END 2020-04-17 09:45 | disposition home or self-care (01) ==
LOC: LB.ED 07:27
DX: R42 Dizziness and giddiness (principal); M25.561 Pain in right knee; I10 Essential (primary) hypertension; Z88.0 Allergy status to penicillin; Z90.49 Acquired absence of other specified parts of digestive tract; W19.XXXA Unspecified fall, initial encounter; Y92.009 Unspecified place in unspecified non-institutional (private) residence as the place of occurrence of the external cause
CPT/HCPCS: 36415; 71045; 73562-RT; 80053; 84484; 85025; 93005; 99284-25; A9270-GY

== ENCOUNTER 2021-03-08 12:00 | Emergency (ER) | payer MEDICARE, BC ==
[2021-03-08 12:50] VITALS: BP 173/102; PULSE 83
--- NOTE | 2021-03-08 14:06 | EDM.PDOC ---
ED HPI GENERAL MEDICAL PROBLEM - General Chief Complaint: Respiratory Problem Stated Complaint: SHORTNESS OF BREATH Time Seen by Provider: 03/08/21 12:05 Source of Information: Reports: Patient, EMS History Limitations: Reports: No Limitations - History of Present Illness INITIAL COMMENTS - FREE TEXT/NARRATIVE: This patient presents to the emergency department for evaluation of shortness of breath. She states she has not been feeling well for the past couple of days and is complaining of feeling more tired than typical for her. She states that she typically goes for a walk every morning and was only get able to get partial walk in today before she became too fatigued and had to rest. She states she has no pain, denies headache, chest pain. Her appetite is good and she denies any vomiting or diarrhea. - Related Data Allergies Allergy/AdvReac Type Severity Reaction Status Date / Time Penicillins Allergy Itching Verified 03/08/21 12:07 Home Meds: Home Meds Aspirin 81 mg PO DAILY 04/17/20 [History] Benazepril [Lotensin] 0.5 tab PO DAILY 04/17/20 [History] Brinzolamide/Brimonidine Tart [Simbrinza 1%-0.2% Eye Drops] 1 drop OP BID 04/17/20 [History] Cataplex-D 1 tab PO DAILY 04/17/20 [History] Cyclobenzaprine [Flexeril] 5 mg PO TID PRN 04/17/20 [History] Eyedrate 1 tab PO DAILY 04/17/20 [History] Prebiotic Inulin 1 tab PO DAILY 04/17/20 [History] Tuna [place]-3 2 tab PO BID 04/17/20 [History] Vitamin B Complex [B Complex] 1 each PO DAILY 04/17/20 [History] hydroCHLOROthiazide [Hydrochlorothiazide] 1 tab PO DAILY 04/17/20 [History] Past Medical History HEENT History: Reports: Cataract, Glaucoma, Impaired Vision Cardiovascular History: Reports: Heart Murmur, Hypertension Respiratory History: Reports: None Gastrointestinal History: Reports: None Genitourinary History: Reports: None 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 Musculoskeletal History: Reports: Back Pain, Chronic, Osteoarthritis Neurological History: Reports: Migraines Endocrine/Metabolic History: Reports: None Oncologic (Cancer) History: Reports: None - Infectious Disease History Infectious Disease History: Reports: Chicken Pox, Measles, Pertussis (Whooping Cough), Rheumatic Fever, Rubella - Past Surgical History HEENT Surgical History: Reports: Cataract Surgery, Tonsillectomy GI Surgical History: Reports: Appendectomy Female Surgical History: Reports: D&C Other Neurological Surgeries/Procedures: no radicular symptoms in LEs Musculoskeletal Surgical History: Reports: Knee Replacement, Other (See Below) Other Musculoskeletal Surgeries/Procedures:: Trigger finger release bilterally Social & Family History - Family History Family Medical History: No Pertinent Family History - Tobacco Use Tobacco Use Status *Q: Never Tobacco User - Caffeine Use Caffeine Use: Reports: None - Recreational Drug Use Recreational Drug Use: No ED ROS GENERAL - Review of Systems Review Of Systems: Comprehensive ROS is negative, except as noted in HPI. Respiratory: Reports: Shortness of Breath. Denies: Cough ED EXAM, GENERAL - Physical Exam Exam: See Below Exam Limited By: No Limitations General Appearance: Alert, No Apparent Distress Eye Exam: Bilateral Eye: Normal Inspection, PERRL (Exacerbation) Ears: Normal External Exam Nose: Normal Inspection Throat/Mouth: Normal Inspection Head: Atraumatic, Normocephalic Neck: Normal Inspection, Full Range of Motion Respiratory/Chest: Lungs Clear, Normal Breath Sounds Cardiovascular: Regular Rate, Rhythm GI/Abdominal: Normal Bowel Sounds, Soft, Non-Tender, No Distention Neurological: Alert, Oriented Course - Vital Signs Last Recorded V/S: Last Vital Signs Temp 36.1 C 03/08/21 12:00 Pulse 83 03/08/21 12:21 Resp 18 03/08/21 12:21 BP 173/102 H 03/08/21 12:21 Pulse Ox 96 03/08/21 12:21 - Orders/Labs/Meds Orders: Active Orders 24 hr Category Date Time Status Chest 2V [CR] Stat Exams 03/08/21 12:38 Taken Labs: Laboratory Tests 03/08/21 03/08/21 03/08/21 Range/Units 12:43 13:00 13:00 WBC 7.8 (4.0-11.0) K/uL RBC 4.98 (3.80-5.80) M/uL Hgb 14.7 (11.5-16.5) g/dL Hct 44.9 (37.0-47.0) % MCV 90 (76-96) fL MCH 29.5 (27.0-32.0) pg MCHC 32.7 (31.0-35.0) g/dL RDW 14.1 (11.0-16.0) % Plt Count 212 (150-500) K/uL MPV 10.5 H (6.0-10.0) fL Neut % (Auto) 65.5 (45.0-70.0) % Lymph % (Auto) 23.2 (20.0-40.0) % [place] % (Auto) 8.6 (3.0-10.0) % Eos % (Auto) 2.3 (1.0-5.0) % Baso % (Auto) 0.4 (0.0-0.5) % Neut # (Auto) 5.09 (2.00-7.50) K/uL Lymph # (Auto) 1.80 (1.50-4.00) K/uL [place] # (Auto) 0.67 (0.20-0.80) K/uL Eos # (Auto) 0.18 (0.04-0.40) K/uL Baso # (Auto) 0.03 (0.02-0.10) K/uL Sodium 141 (136-145) mmol/L Potassium 4.0 (3.5-5.1) mmol/L Chloride 104 (98-107) mmol/L Carbon Dioxide 32.4 H (21.0-32.0) mmol/L Anion Gap 8.6 (5.0-15.0) mmol/L BUN 16 (8-26) mg/dL Creatinine 0.73 (0.55-1.02) mg/dL Est Cr Clr Drug Dosing 51.62 mL/min Estimated GFR (MDRD) > 60 (>60) MLS/MIN BUN/Creatinine Ratio 21.9 (6-25) Glucose 99 (74-100) mg/dL Calcium 9.9 (8.5-10.1) mg/dL Urine Color Yellow Urine Appearance Clear (CLEAR) Urine pH 7.0 (5.0-8.0) Ur Specific [place] 1.025 (1.003-1.030) Urine Protein Negative (NEGATIVE) mg/dL Urine Glucose (UA) Negative (NEGATIVE) mg/dL Urine Ketones Negative (NEGATIVE) mg/dL Urine Occult Blood Negative (NEGATIVE) Urine Nitrite Negative (NEGATIVE) Urine Bilirubin Negative (NEGATIVE) Urine Urobilinogen 0.2 (0.2-1.0) E.U./dL Ur Leukocyte Esterase Negative (NEGATIVE) - Re-Assessments/Exams Free Text/Narrative Re-Assessment/Exam: 03/08/21 14:18 This patient presents for evaluation of generalized weakness and fatigue. She has not had any associated symptoms with this and has denied falls. The work-up here today in the emergency department was to evaluate for infections, metabolic, electrolyte, neurologic, or but cardiovascular causes of her weakness. Of note there are no signs of pneumonia or UTI causing the symptoms. In addition I do not believe the symptoms are due to CVA, TIA,or acute coronary symptoms. There are no indications at this point for further work-up with the benign history, exam, and laboratory findings. She ambulated well in the ED and did transfer without difficulty. I believe a supportive outpatient management is indicated and will have her follow-up with her primary care provider in 1 to 2 days for recheck. She was instructed to return to the emergency department for fever, worsening symptoms or new or concerning findings. Departure - Departure Time of Disposition: 14:15 Disposition: Home, Self-Care 01 Condition: Good Clinical Impression: Weakness - Discharge Information *PRESCRIPTION DRUG MONITORING PROGRAM REVIEWED*: Not Applicable *COPY OF PRESCRIPTION DRUG MONITORING REPORT IN PATIENT TARA: Not Applicable Instructions: Weakness, [id number] Referrals: PCP,None [Primary Care Provider] - Forms: ED Department Discharge Sepsis Event Note (ED) - Evaluation Sepsis Screening Result: No Definite Risk - Focused Exam Vital Signs: Vital Signs Temp Pulse Resp BP Pulse Ox 03/08/21 12:21 83 18 173/102 H 96 03/08/21 12:05 89 20 188/101 H 96 03/08/21 12:00 36.1 C 85 24 H 192/107 H 97 - My Orders Last 24 Hours: My Active Orders 03/08/21 12:38 Chest 2V [CR] Stat - Assessment/Plan Last 24 Hours: My Active Orders 03/08/21 12:38 Chest 2V [CR] Stat
--- NOTE | 2021-03-08 15:59 | CR ---
DATE OF SERVICE: 03/08/2021 CLINICAL DATA: Fatigue. PA AND LATERAL CHEST: The heart size is normal. There is calcification of the aortic arch. The lungs are hyperexpanded but clear. No pneumothorax. No pleural effusions. No evidence of acute intrathoracic disease. [id number] MTDD
== END 2021-03-08 14:20 | disposition home or self-care (01) ==
LOC: LB.ED 12:00
DX: R53.1 Weakness (principal); R53.83 Other fatigue; I10 Essential (primary) hypertension; Z88.0 Allergy status to penicillin; Z79.82 Long term (current) use of aspirin; Z79.899 Other long term (current) drug therapy
CPT/HCPCS: 36415; 71046; 80048; 81003; 85025; 99283; 99285-25

== ENCOUNTER 2021-04-09 13:21 | Emergency (ER) | payer MEDICARE, BC ==
--- NOTE | 2021-04-09 15:34 | EDM.PDOC ---
ED HPI GENERAL MEDICAL PROBLEM - General Chief Complaint: General Stated Complaint: weakness Time Seen by Provider: 04/09/21 13:40 Source of Information: Reports: Patient History Limitations: Reports: No Limitations - History of Present Illness INITIAL COMMENTS - FREE TEXT/NARRATIVE: This patient presents to the emergency department for evaluation of weakness. She states that she has had increasing weakness and fatigue and falls asleep quite easily. She is concerned that there may be something wrong with her thyroid or her heart. She resides on the second floor in the [facility] and has previously been able to walk to the [facility] daily to participate in activities but has not been able to do this of late because she states she cannot walk that far anymore. She denies fever cough. She she denies other concerns or complaints. States she has had a decrease in her appetite but has had no vomiting or diarrhea. - Related Data Allergies Allergy/AdvReac Type Severity Reaction Status Date / Time Penicillins Allergy Mild Itching Verified 04/09/21 14:15 Home Meds: Home Meds Aspirin 81 mg PO DAILY 04/17/20 [History] Benazepril [Lotensin] 0.5 tab PO DAILY 04/17/20 [History] Brinzolamide/Brimonidine Tart [Simbrinza 1%-0.2% Eye Drops] 1 drop OP BID 04/17/20 [History] Cataplex-D 1 tab PO DAILY 04/17/20 [History] Cyclobenzaprine [Flexeril] 5 mg PO TID PRN 04/17/20 [History] Eyedrate 1 tab PO DAILY 04/17/20 [History] Prebiotic Inulin 1 tab PO DAILY 04/17/20 [History] Tuna Sal[place]-3 2 tab PO BID 04/17/20 [History] Vitamin B Complex [B Complex] 1 each PO DAILY 04/17/20 [History] hydroCHLOROthiazide [Hydrochlorothiazide] 1 tab PO DAILY 04/17/20 [History] Past Medical History HEENT History: Reports: Cataract, Glaucoma, Impaired Vision Cardiovascular History: Reports: Heart Murmur, Hypertension Respiratory History: Reports: None Gastrointestinal History: Reports: None Genitourinary History: Reports: None 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 Musculoskeletal History: Reports: Back Pain, Chronic, Osteoarthritis Neurological History: Reports: Migraines Endocrine/Metabolic History: Reports: None Oncologic (Cancer) History: Reports: None - Infectious Disease History Infectious Disease History: Reports: Chicken Pox, Measles, Pertussis (Whooping Cough), Rheumatic Fever, Rubella - Past Surgical History HEENT Surgical History: Reports: Cataract Surgery, Tonsillectomy GI Surgical History: Reports: Appendectomy Female Surgical History: Reports: D&C Other Neurological Surgeries/Procedures: no radicular symptoms in LEs Musculoskeletal Surgical History: Reports: Knee Replacement, Other (See Below) Other Musculoskeletal Surgeries/Procedures:: Trigger finger release bilterally Social & Family History - Family History Family Medical History: No Pertinent Family History - Caffeine Use Caffeine Use: Reports: None ED ROS GENERAL - Review of Systems Review Of Systems: See Below Constitutional: Reports: Weakness, Decreased Appetite. Denies: Fever HEENT: Reports: No Symptoms Respiratory: Denies: Shortness of Breath, Wheezing, Cough Cardiovascular: Denies: Chest Pain GI/Abdominal: Reports: No Symptoms Musculoskeletal: Reports: No Symptoms Skin: Reports: No Symptoms Neurological: Reports: No Symptoms ED EXAM, GENERAL - Physical Exam Exam: See Below Exam Limited By: No Limitations General Appearance: Alert, WD/WN, No Apparent Distress Eye Exam: Bilateral Eye: PERRL Ears: Normal External Exam Nose: Normal Inspection Throat/Mouth: Normal Inspection, Normal Oropharynx Head: Atraumatic, Normocephalic Neck: Normal Inspection Respiratory/Chest: No Respiratory Distress, Lungs Clear, Normal Breath Sounds, No Accessory Muscle Use Cardiovascular: Regular Rate, Rhythm Extremities: Normal Inspection Neurological: Alert, Oriented Psychiatric: Normal Affect Skin Exam: Warm, Dry, Intact Course - Vital Signs Last Recorded V/S: Last Vital Signs Temp 36.3 C 04/09/21 15:36 Pulse 90 04/09/21 15:36 Resp 18 04/09/21 15:36 BP 179/93 H 04/09/21 15:36 Pulse Ox 96 04/09/21 15:36 - Orders/Labs/Meds Labs: Laboratory Tests 04/09/21 04/09/21 04/09/21 Range/Units 13:32 13:33 13:33 WBC 7.9 (4.0-11.0) K/uL RBC 4.70 (3.80-5.80) M/uL Hgb 13.9 (11.5-16.5) g/dL Hct 42.1 (37.0-47.0) % MCV 90 (76-96) fL MCH 29.6 (27.0-32.0) pg MCHC 33.0 (31.0-35.0) g/dL RDW 13.8 (11.0-16.0) % Plt Count 199 (150-500) K/uL MPV 11.3 H (6.0-10.0) fL Neut % (Auto) 64.7 (45.0-70.0) % Lymph % (Auto) 21.6 (20.0-40.0) % [place] % (Auto) 9.3 (3.0-10.0) % Eos % (Auto) 3.9 (1.0-5.0) % Baso % (Auto) 0.5 (0.0-0.5) % Neut # (Auto) 5.13 (2.00-7.50) K/uL Lymph # (Auto) 1.71 (1.50-4.00) K/uL [place] # (Auto) 0.74 (0.20-0.80) K/uL Eos # (Auto) 0.31 (0.04-0.40) K/uL Baso # (Auto) 0.04 (0.02-0.10) K/uL Sodium 139 (136-145) mmol/L Potassium 3.9 (3.5-5.1) mmol/L Chloride 105 (98-107) mmol/L Carbon Dioxide 30.3 (21.0-32.0) mmol/L Anion Gap 7.6 (5.0-15.0) mmol/L BUN 16 (8-26) mg/dL Creatinine 0.61 (0.55-1.02) mg/dL Est Cr Clr Drug Dosing 61.78 mL/min Estimated GFR (MDRD) > 60 (>60) MLS/MIN BUN/Creatinine Ratio 26.2 H (6-25) Glucose 103 H (74-100) mg/dL Calcium 9.5 (8.5-10.1) mg/dL TSH, Ultra Sensitive 0.827 (0.358-3.740) uIU/mL Urine Color Urine Appearance (CLEAR) Urine pH (5.0-8.0) Ur Specific [place] (1.003-1.030) Urine Protein (NEGATIVE) mg/dL Urine Glucose (UA) (NEGATIVE) mg/dL Urine Ketones (NEGATIVE) mg/dL Urine Occult Blood (NEGATIVE) Urine Nitrite (NEGATIVE) Urine Bilirubin (NEGATIVE) Urine Urobilinogen (0.2-1.0) E.U./dL Ur Leukocyte Esterase (NEGATIVE) 04/09/21 Range/Units 14:12 WBC (4.0-11.0) K/uL RBC (3.80-5.80) M/uL Hgb (11.5-16.5) g/dL Hct (37.0-47.0) % MCV (76-96) fL MCH (27.0-32.0) pg MCHC (31.0-35.0) g/dL RDW (11.0-16.0) % Plt Count (150-500) K/uL MPV (6.0-10.0) fL Neut % (Auto) (45.0-70.0) % Lymph % (Auto) (20.0-40.0) % [place] % (Auto) (3.0-10.0) % Eos % (Auto) (1.0-5.0) % Baso % (Auto) (0.0-0.5) % Neut # (Auto) (2.00-7.50) K/uL Lymph # (Auto) (1.50-4.00) K/uL [place] # (Auto) (0.20-0.80) K/uL Eos # (Auto) (0.04-0.40) K/uL Baso # (Auto) (0.02-0.10) K/uL Sodium (136-145) mmol/L Potassium (3.5-5.1) mmol/L Chloride (98-107) mmol/L Carbon Dioxide (21.0-32.0) mmol/L Anion Gap (5.0-15.0) mmol/L BUN (8-26) mg/dL Creatinine (0.55-1.02) mg/dL Est Cr Clr Drug Dosing mL/min Estimated GFR (MDRD) (>60) MLS/MIN BUN/Creatinine Ratio (6-25) Glucose (74-100) mg/dL Calcium (8.5-10.1) mg/dL TSH, Ultra Sensitive (0.358-3.740) uIU/mL Urine Color Yellow Urine Appearance Clear (CLEAR) Urine pH 7.5 (5.0-8.0) Ur Specific [place] 1.020 (1.003-1.030) Urine Protein Negative (NEGATIVE) mg/dL Urine Glucose (UA) Negative (NEGATIVE) mg/dL Urine Ketones Negative (NEGATIVE) mg/dL Urine Occult Blood Negative (NEGATIVE) Urine Nitrite Negative (NEGATIVE) Urine Bilirubin Negative (NEGATIVE) Urine Urobilinogen 0.2 (0.2-1.0) E.U./dL Ur Leukocyte Esterase Negative (NEGATIVE) - Re-Assessments/Exams Free Text/Narrative Re-Assessment/Exam: 04/10/21 07:38 This patient presents to the emergency department for evaluation of generalized weakness. Work-up here in the emergency department was to evaluate for infection, metabolic, electrolyte, neurologic, or cardiovascular causes of note there were also no signs of pneumonia or UTI causing the symptoms. I do not believe the symptoms are due to CVA, TIA, myopathies, or acute coronary syndromes. There are no indications at this point for further work-up given her rather benign history, normal exam and laboratory findings. She was able to ambulate in the ER and did well however does need a walker or wheelchair for longer distances. I believe supportive outpatient management is indicated and will have her follow-up with her primary care provider in 1 to 2 days. Patient was stable at the time of discharge. Departure - Departure Time of Disposition: 15:30 Disposition: Home, Self-Care 01 Condition: Good Clinical Impression: Weakness - Discharge Information Instructions: Fatigue Referrals: PCP,None [Primary Care Provider] - Forms: ED Department Discharge Care Plan Goals: follow up with your primary caregiver as needed. Sepsis Event Note (ED) - Evaluation Sepsis Screening Result: No Definite Risk
[2021-04-09 15:37] VITALS: BP 179/93; PULSE 90
== END 2021-04-09 15:38 | disposition home or self-care (01) ==
LOC: LB.ED 13:21
DX: R53.1 Weakness (principal); I10 Essential (primary) hypertension; Z88.0 Allergy status to penicillin; Z79.82 Long term (current) use of aspirin; Z79.899 Other long term (current) drug therapy
CPT/HCPCS: 36415; 80048; 81003; 84443; 85025; 93005; 99285-25

== ENCOUNTER 2021-04-12 11:18 | Inpatient (IN) | payer MEDICARE, BC ==
[2021-04-12] MEDS ORDERED: Sodium Chloride 0.9% 10 ML Syringe FLUSH PRN (11:19)
--- NOTE | 2021-04-12 12:00 | CT ---
DATE OF SERVICE: 04/12/2021 CLINICAL DATA: Confusion Unenhanced brain CT: Multi slice acquisition through the brain without IV contrast was performed. No priors. There is diffuse atrophy. There are extensive periventricular lucencies bilaterally consistent with small vessel ischemic change. There are low-density lesions in the basal ganglia bilaterally and within the head of the caudate bilaterally consistent with old lacunar infarcts. No masses or mass effect. No intracranial hemorrhage. No evidence of acute or subacute infarct. No osseous abnormalities. Impression: No acute intracranial abnormality MTDD
--- NOTE | 2021-04-12 12:07 | EDM.PDOC ---
ED HPI GENERAL MEDICAL PROBLEM - General Chief Complaint: Neurological Problem Stated Complaint: UNKNOWN Time Seen by Provider: 04/12/21 11:20 Source of Information: Reports: Patient History Limitations: Reports: Altered Mental Status - History of Present Illness INITIAL COMMENTS - FREE TEXT/NARRATIVE: This patient presents to the emergency room from her assisted living facility with a change in mentation. She has been seen twice in the past month for increased weakness and has had work-ups that have included labs and EKG. Her weakness has not changed appreciably however she has become quite confused and was noted to be incontinent this morning which is quite unusual for her. Patient reports feeling 'muddled' and is unsure of day, month but is oriented to herself and to place. She does know that she is in the emergency department. - Related Data Allergies Allergy/AdvReac Type Severity Reaction Status Date / Time Penicillins Allergy Mild Itching Verified 04/12/21 11:38 Home Meds: Home Meds Aspirin 81 mg PO DAILY 04/17/20 [History] Benazepril [Lotensin] 0.5 tab PO DAILY 04/17/20 [History] Brinzolamide/Brimonidine Tart [Simbrinza 1%-0.2% Eye Drops] 1 drop OP BID 04/17/20 [History] Cataplex-D 1 tab PO DAILY 04/17/20 [History] Cyclobenzaprine [Flexeril] 5 mg PO TID PRN 04/17/20 [History] Eyedrate 1 tab PO DAILY 04/17/20 [History] Prebiotic Inulin 1 tab PO DAILY 04/17/20 [History] Tuna [place]-3 2 tab PO BID 04/17/20 [History] Vitamin B Complex [B Complex] 1 each PO DAILY 04/17/20 [History] hydroCHLOROthiazide [Hydrochlorothiazide] 1 tab PO DAILY 04/17/20 [History] Past Medical History HEENT History: Reports: Cataract, Glaucoma, Impaired Vision Cardiovascular History: Reports: Heart Murmur, Hypertension Respiratory History: Reports: None Gastrointestinal History: Reports: None Genitourinary History: Reports: None 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 Musculoskeletal History: Reports: Back Pain, Chronic, Osteoarthritis Neurological History: Reports: Migraines Endocrine/Metabolic History: Reports: None Oncologic (Cancer) History: Reports: None - Infectious Disease History Infectious Disease History: Reports: Chicken Pox, Measles, Pertussis (Whooping Cough), Rheumatic Fever, Rubella - Past Surgical History HEENT Surgical History: Reports: Cataract Surgery, Tonsillectomy GI Surgical History: Reports: Appendectomy Female Surgical History: Reports: D&C Other Neurological Surgeries/Procedures: no radicular symptoms in LEs Musculoskeletal Surgical History: Reports: Knee Replacement, Other (See Below) Other Musculoskeletal Surgeries/Procedures:: Trigger finger release bilterally Social & Family History - Family History Family Medical History: No Pertinent Family History - Tobacco Use Tobacco Use Status *Q: Unknown Ever Used Tobacco - Caffeine Use Caffeine Use: Reports: None ED ROS GENERAL - Review of Systems Review Of Systems: Unable To Obtain Reason Not Obtained: confusion; change in mental status Constitutional: Reports: ROS unobtainable (Patient has increased confusion and is inaccurate and answers to common questions.) - Physical Exam Exam: See Below Exam Limited By: Altered Mental Status General Appearance: Alert, No Apparent Distress Eye Exam: Bilateral Eye: Normal Inspection, PERRL Ears: Normal External Exam Nose: Normal Inspection Throat/Mouth: Normal Inspection Head Exam: Atraumatic, Normocephalic Neck: Normal Inspection, Supple, Non-Tender, Full Range of Motion Respiratory/Chest: No Respiratory Distress, Lungs Clear, Normal Breath Sounds, No Accessory Muscle Use, Chest Non-Tender Cardiovascular: Regular Rate, Rhythm Neuro Exam (Abbreviated): Alert, Confused, Disoriented, Other (Oriented to self and place) Back Exam: Normal Inspection Extremities: Normal Inspection Psychiatric: Normal Affect, Normal Mood Skin Exam: Warm, Dry, Intact, Normal Color, No Rash Course - Vital Signs Last Recorded V/S: Last Vital Signs Temp 36.9 C 04/12/21 11:40 Pulse 89 04/12/21 11:40 Resp 16 04/12/21 11:40 BP 202/103 H 04/12/21 11:40 Pulse Ox 97 04/12/21 11:40 - Orders/Labs/Meds Orders: Active Orders 24 hr Category Date Time Status Admission Diagnosis [ADT] Stat ADT 04/12/21 12:15 Ordered UA W/MICROSCOPIC [URIN] Stat Lab 04/12/21 11:42 Results Sodium Chloride 0.9% [Saline Flush] Med 04/12/21 11:19 Active 10 ml FLUSH ASDIRECTED PRN Saline Lock Insert [OM.PC] Stat Oth 04/12/21 11:19 Ordered EKG 12 Lead [EK] Stat Ther 04/12/21 11:20 Ordered Medication Orders Sodium Chloride (Sodium Chloride 0.9% 10 Ml Syringe) 10 ml FLUSH ASDIRECTED PRN PRN Reason: Keep Vein Open Labs: Laboratory Tests 04/12/21 04/12/21 04/12/21 Range/Units 11:20 11:20 11:42 WBC 9.1 (4.0-11.0) K/uL RBC 5.08 (3.80-5.80) M/uL Hgb 15.0 (11.5-16.5) g/dL Hct 45.6 (37.0-47.0) % MCV 90 (76-96) fL MCH 29.5 (27.0-32.0) pg MCHC 32.9 (31.0-35.0) g/dL RDW 13.9 (11.0-16.0) % Plt Count 218 (150-500) K/uL MPV 10.5 H (6.0-10.0) fL Neut % (Auto) 77.7 H (45.0-70.0) % Lymph % (Auto) 13.3 L (20.0-40.0) % [place] % (Auto) 6.7 (3.0-10.0) % Eos % (Auto) 1.9 (1.0-5.0) % Baso % (Auto) 0.4 (0.0-0.5) % Neut # (Auto) 7.08 (2.00-7.50) K/uL Lymph # (Auto) 1.21 L (1.50-4.00) K/uL [place] # (Auto) 0.61 (0.20-0.80) K/uL Eos # (Auto) 0.17 (0.04-0.40) K/uL Baso # (Auto) 0.04 (0.02-0.10) K/uL Sodium 140 (136-145) mmol/L Potassium 3.9 (3.5-5.1) mmol/L Chloride 105 (98-107) mmol/L Carbon Dioxide 30.2 (21.0-32.0) mmol/L Anion Gap 8.7 (5.0-15.0) mmol/L BUN 17 (8-26) mg/dL Creatinine 0.78 D (0.55-1.02) mg/dL Est Cr Clr Drug Dosing 46.36 mL/min Estimated GFR (MDRD) > 60 (>60) MLS/MIN BUN/Creatinine Ratio 21.8 (6-25) Glucose 158 H D (74-100) mg/dL Calcium 9.6 (8.5-10.1) mg/dL Urine Color Yellow Urine Appearance Cloudy (CLEAR) Urine pH 7.5 (5.0-8.0) Ur Specific [place] 1.025 (1.003-1.030) Urine Protein Negative (NEGATIVE) mg/dL Urine Glucose (UA) Negative (NEGATIVE) mg/dL Urine Ketones Negative (NEGATIVE) mg/dL Urine Occult Blood Trace-intact H (NEGATIVE) Urine Nitrite Negative (NEGATIVE) Urine Bilirubin Negative (NEGATIVE) Urine Urobilinogen 0.2 (0.2-1.0) E.U./dL Ur Leukocyte Esterase Negative (NEGATIVE) Meds: Medications Generic Name Dose Route Start Last Admin Trade Name Freq PRN Reason Stop Dose Admin Sodium Chloride 10 ml 04/12/21 11:19 Sodium Chloride 0.9% 10 Ml Syringe FLUSH ASDIRECTED PRN Keep Vein Open - Re-Assessments/Exams Free Text/Narrative Re-Assessment/Exam: 04/12/21 12:29 This patient was brought to the emergency department for confusion and weakness. She typically is able to care for herself in the assisted living facility however was noted to be quite confused today. Lab work, EKG, and head CT were not helpful in finding an etiology for this change. It is possible the changes we are witnessing are attributed to aging. She is unable to care for herself today and will be admitted to the hospital for further assessment. Departure - Departure Time of Disposition: 12:30 Disposition: Admitted As Inpatient 67 Condition: Fair Clinical Impression: Weakness, Confusion - Discharge Information *PRESCRIPTION DRUG MONITORING PROGRAM REVIEWED*: Not Applicable *COPY OF PRESCRIPTION DRUG MONITORING REPORT IN PATIENT TARA: Not Applicable Referrals: PCP,None [Primary Care Provider] - Forms: ED Department Discharge Sepsis Event Note (ED) - Focused Exam Vital Signs: Vital Signs Temp Pulse Resp BP Pulse Ox 04/12/21 11:40 36.9 C 89 16 202/103 H 97 - My Orders Last 24 Hours: My Active Orders 10/07/21 11:19 Sodium Chloride 0.9% [Saline Flush] 10 ml FLUSH ASDIRECTED PRN Saline Lock Insert [OM.PC] Stat 04/12/21 11:20 EKG 12 Lead [EK] Stat 04/12/21 11:42 UA W/MICROSCOPIC [URIN] Stat 04/12/21 12:15 Admission Diagnosis [ADT] Stat - Assessment/Plan Last 24 Hours: My Active Orders 04/12/21 11:19 Sodium Chloride 0.9% [Saline Flush] 10 ml FLUSH ASDIRECTED PRN Saline Lock Insert [OM.PC] Stat 04/12/21 11:20 EKG 12 Lead [EK] Stat 04/12/21 11:42 UA W/MICROSCOPIC [URIN] Stat 04/12/21 12:15 Admission Diagnosis [ADT] Stat
--- NOTE | 2021-04-12 13:32 | PCM.HP.2 ---
H&P History of Present Illness - General Date of Service: 04/12/21 Admit Problem/Dx: Admission Diagnosis/Problem Admission Diagnosis/Problem Weakness Source of Information: Patient, RN Notes Reviewed, Other History Limitations: Reports: Altered Mental Status (Assisted-living personnel) - History of Present Illness Initial Comments - Free Text/Narative: This patient was admitted to the inpatient unit on acute status for weakness and confusion. She has been complaining of increased weakness over the past month with a significant decline in her ability to ambulate and care for self. Today she was noted to be quite confused and oriented only to self and place. She was also incontinent today which is very unusual for her. She has had decreasing ability to take care of self care needs including dressing, bathing, and feeding in addition to toileting. She had a work-up in the ER that included labs, EKG, and a head CT. All were within normal limits and there is no definitive etiology for her confusion or change in her level of self-care. - Related Data Allergies/Adverse Reactions: Allergies Allergy/AdvReac Type Severity Reaction Status Date / Time Penicillins Allergy Mild Itching Verified 04/12/21 11:38 Home Medications: Home Meds Aspirin 81 mg PO DAILY 04/17/20 [History] Benazepril [Lotensin] 0.5 tab PO DAILY 04/17/20 [History] Brinzolamide/Brimonidine Tart [Simbrinza 1%-0.2% Eye Drops] 1 drop OP BID 04/17/20 [History] Cataplex-D 1 tab PO DAILY 04/17/20 [History] Cyclobenzaprine [Flexeril] 5 mg PO TID PRN 04/17/20 [History] Eyedrate 1 tab PO DAILY 04/17/20 [History] Prebiotic Inulin 1 tab PO DAILY 04/17/20 [History] Tuna [place]-3 2 tab PO BID 04/17/20 [History] Vitamin B Complex [B Complex] 1 each PO DAILY 04/17/20 [History] hydroCHLOROthiazide [Hydrochlorothiazide] 1 tab PO DAILY 04/17/20 [History] Past Medical History HEENT History: Reports: Cataract, Glaucoma, Impaired Vision Cardiovascular History: Reports: Heart Murmur, Hypertension Respiratory History: Reports: None Gastrointestinal History: Reports: None Genitourinary History: Reports: None 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 Musculoskeletal History: Reports: Back Pain, Chronic, Osteoarthritis Neurological History: Reports: Migraines Endocrine/Metabolic History: Reports: None Oncologic (Cancer) History: Reports: None - Infectious Disease History Infectious Disease History: Reports: Chicken Pox, Measles, Pertussis (Whooping Cough), Rheumatic Fever, Rubella - Past Surgical History HEENT Surgical History: Reports: Cataract Surgery, Tonsillectomy GI Surgical History: Reports: Appendectomy Female Surgical History: Reports: D&C Other Neurological Surgeries/Procedures: no radicular symptoms in LEs Musculoskeletal Surgical History: Reports: Knee Replacement, Other (See Below) Other Musculoskeletal Surgeries/Procedures:: Trigger finger release bilterally Social & Family History - Family History Family Medical History: No Pertinent Family History - Tobacco Use Tobacco Use Status *Q: Unknown Ever Used Tobacco - Caffeine Use Caffeine Use: Reports: None H&P Review of Systems - Review of Systems: Review Of Systems: Unable To Obtain (Unbelievable) Reason Not Obtained: Confusion Exam - Exam Exam: See Below - Vital Signs Vital Signs: Last Vital Signs Temp 36.9 C 04/12/21 11:40 Pulse 89 04/12/21 11:40 Resp 16 04/12/21 11:40 BP 202/103 H 04/12/21 11:40 Pulse Ox 97 04/12/21 11:40 Weight: 68.039 kg - Exam General: Alert, Cooperative, Other (Oriented to self and place) HEENT: PERRLA, Conjunctiva Clear, EACs Clear, EOMI, Hearing Intact, Mucosa Moist & [place], Nares Patent, Normal Nasal Septum, Posterior Pharynx Clear, Pupils Equal, Pupils Reactive, TMs Clear Neck: Supple, Full Range of Motion (This very [id number] there wants to the nurse on the floor) Lungs: Clear to Auscultation, Normal Respiratory Effort Cardiovascular: Regular Rate, Regular Rhythm GI/Abdominal Exam: Normal Bowel Sounds, Soft, Non-Tender, No Distention Extremities: Normal Inspection Skin: Warm, Dry, Intact Neuro Extensive - Mental Status: Alert, Oriented x3 (My God I am creating more problems) Neuro Extensive - Motor, Sensory, Reflexes: No: Motor/Sensory Deficits, Abnormal Romberg (Carmen I created more problems) Psychiatric: Alert, Normal Affect, Normal Mood (Bernabe admission I have never consulted admission 6years mass consult to get back for transferring the bone successfully) - Patient Data Lab Results Last 24 hrs: Laboratory Results - last 24 hr 04/12/21 04/12/21 04/12/21 Range/Units 11:20 11:20 11:42 WBC 9.1 (4.0-11.0) K/uL RBC 5.08 (3.80-5.80) M/uL Hgb 15.0 (11.5-16.5) g/dL Hct 45.6 (37.0-47.0) % MCV 90 (76-96) fL MCH 29.5 (27.0-32.0) pg MCHC 32.9 (31.0-35.0) g/dL RDW 13.9 (11.0-16.0) % Plt Count 218 (150-500) K/uL MPV 10.5 H (6.0-10.0) fL Neut % (Auto) 77.7 H (45.0-70.0) % Lymph % (Auto) 13.3 L (20.0-40.0) % [place] % (Auto) 6.7 (3.0-10.0) % Eos % (Auto) 1.9 (1.0-5.0) % Baso % (Auto) 0.4 (0.0-0.5) % Neut # (Auto) 7.08 (2.00-7.50) K/uL Lymph # (Auto) 1.21 L (1.50-4.00) K/uL [place] # (Auto) 0.61 (0.20-0.80) K/uL Eos # (Auto) 0.17 (0.04-0.40) K/uL Baso # (Auto) 0.04 (0.02-0.10) K/uL Sodium 140 (136-145) mmol/L Potassium 3.9 (3.5-5.1) mmol/L Chloride 105 (98-107) mmol/L Carbon Dioxide 30.2 (21.0-32.0) mmol/L Anion Gap 8.7 (5.0-15.0) mmol/L BUN 17 (8-26) mg/dL Creatinine 0.78 D (0.55-1.02) mg/dL Est Cr Clr Drug Dosing 46.36 mL/min Estimated GFR (MDRD) > 60 (>60) MLS/MIN BUN/Creatinine Ratio 21.8 (6-25) Glucose 158 H D (74-100) mg/dL Calcium 9.6 (8.5-10.1) mg/dL Urine Color Yellow Urine Appearance Cloudy (CLEAR) Urine pH 7.5 (5.0-8.0) Ur Specific [place] 1.025 (1.003-1.030) Urine Protein Negative (NEGATIVE) mg/dL Urine Glucose (UA) Negative (NEGATIVE) mg/dL Urine Ketones Negative (NEGATIVE) mg/dL Urine Occult Blood Trace-intact H (NEGATIVE) Urine Nitrite Negative (NEGATIVE) Urine Bilirubin Negative (NEGATIVE) Urine Urobilinogen 0.2 (0.2-1.0) E.U./dL Ur Leukocyte Esterase Negative (NEGATIVE) Urine RBC 0-5 H /HPF Urine WBC 0-5 H /HPF Ur Squamous Epith Cells Few /HPF Amorphous Sediment Many /HPF Result Diagrams: 04/12/21 11:20 04/12/21 11:20 Sepsis Event Note - Focused Exam Vital Signs: Vital Signs Temp Pulse Resp BP Pulse Ox 04/12/21 11:40 36.9 C 89 16 202/103 H 97 *Q Meaningful Use (ADM) - VTE *Q VTE Mechanical Contraindications *Q: At Risk for Falls - VTE Risk Assess *Q Each Risk Factor Represents 3 Points: Age 75 Years or Greater Total Score 3 Point Risk Factors: 3 - Problem List (1) Confusion SNOMED Code(s): 176859943 ICD Code: R41.0 - DISORIENTATION, UNSPECIFIED Status: Acute Current Visit: Yes (2) Weakness SNOMED Code(s): 80942600 ICD Code: R53.1 - WEAKNESS Status: Acute Current Visit: Yes Problem List Initiated/Reviewed/Updated: Yes Orders Last 24hrs: Active Orders 24 hr Category Date Time Status Admission Diagnosis [ADT] Stat ADT 04/12/21 12:15 Active Patient Status [ADT] Routine ADT 04/12/21 13:15 Active Oxygen Therapy [RC] PRN Care 04/12/21 13:15 Active Pulse Oximetry [RC] PRN Care 04/12/21 13:16 Active Up With Assistance [RC] ASDIRECTED Care 04/12/21 13:15 Active VTE/DVT Education [RC] Per Unit Routine Care 04/12/21 13:15 Active Vital Signs [RC] Q4H Care 04/12/21 13:15 Active OT Evaluation and Treatment [CONS] Routine Cons 04/12/21 13:15 Active PT Evaluation and Treatment [CONS] Routine Cons 04/12/21 13:15 Active Regular Diet [DIET] Diet 04/12/21 Dinner Ordered CORONAVIRUS COVID-19 ANGELINA [MOLEC] Stat Lab 04/12/21 13:15 Ordered CULTURE MRSA SURVEY [RM] Routine Lab 04/12/21 13:23 Ordered Acetaminophen [TylenoL] Med 04/12/21 13:15 Ordered 650 mg PO Q4H PRN Aspirin Med 04/13/21 08:00 Ordered 81 mg PO DAILY Benazepril [Lotensin] Med 04/13/21 08:00 Ordered 5 mg PO DAILY Brinzolamide/Brimonidine Tart [Simbrinza 1%-0.2% Eye Med 04/12/21 20:00 Ordered Drops] 1 drop OP BID Cataplex-D Med 04/13/21 08:00 Ordered 1 tab PO DAILY Cyclobenzaprine [Flexeril] Med 04/12/21 13:19 Ordered 5 mg PO TID PRN Docusate Sodium/Sennosides [Senna Plus] Med 04/12/21 13:15 Ordered 1 tab PO BID PRN Eyedrate Med 04/13/21 08:00 Ordered 1 tab PO DAILY Prebiotic Inulin Med 04/13/21 08:00 Ordered 1 tab PO DAILY Sodium Chloride 0.9% [Saline Flush] Med 04/12/21 11:19 Active 10 ml FLUSH ASDIRECTED PRN Tuna [place]-3 Med 04/12/21 20:00 Ordered 2 tab PO BID Vitamin B Complex [B Complex] Med 04/13/21 08:00 Ordered 1 each PO DAILY hydroCHLOROthiazide Med 04/13/21 08:00 Ordered 25 mg PO DAILY Saline Lock Insert [OM.PC] Stat Oth 04/12/21 11:19 Ordered Resuscitation Status Routine Resus Stat 04/12/21 13:15 Ordered EKG 12 Lead [EK] Stat Ther 04/12/21 11:20 Ordered Medication Orders Acetaminophen (Acetaminophen 325 Mg Tab) 650 mg PO Q4H PRN PRN Reason: Pain (Mild 1-3)/fever Aspirin (Aspirin 81 Mg Tab.Chew) 81 mg PO DAILY [facility] Benazepril HCl (Benazepril 10 Mg Tab) 5 mg PO DAILY [facility] Cyclobenzaprine HCl (Cyclobenzaprine 10 Mg Tab) 5 mg PO TID PRN PRN Reason: spasms Hydrochlorothiazide (Hydrochlorothiazide 25 Mg Tab) 25 mg PO DAILY [facility] Non-Formulary Medication (Brinzolamide/Brimonidine Tart [Simbrinza 1%-0.2% Eye Drops]) 1 drop OP BID [facility] Non-Formulary Medication (Cataplex-D) 1 tab PO DAILY [facility] Non-Formulary Medication (Eyedrate) 1 tab PO DAILY [facility] Non-Formulary Medication (Prebiotic Inulin) 1 tab PO DAILY [facility] Non-Formulary Medication (Tuna [place]-3 ) 2 tab PO BID [facility] Non-Formulary Medication (Vitamin B Complex [B Complex]) 1 each PO DAILY [facility] Senna/Docusate Sodium (Docusate Sodium/Sennosides 50-8.6 Mg Tab) 1 tab PO BID PRN PRN Reason: Constipation Sodium Chloride (Sodium Chloride 0.9% 10 Ml Syringe) 10 ml FLUSH ASDIRECTED PRN PRN Reason: Keep Vein Open - Mortality Measure Prognosis:: Good
[2021-04-12] MEDS ORDERED: cloNIDine 0.1 MG Tab PO ONE (14:15)
[2021-04-12] MEDS: Cyclobenzaprine 10 MG Tab PO PRN (14:56)
[2021-04-12] MEDS ORDERED: [UNRECOGNIZED DRUG - OTHER] PO SCH (20:00)
[2021-04-13] MEDS: Aspirin 81 MG Tab.Chew PO SCH (07:17)
[2021-04-13] MEDS: Hydrochlorothiazide 25 MG Tab PO SCH (07:18)
[2021-04-13] MEDS: Benazepril 10 MG Tab PO SCH (07:41)
[2021-04-13] MEDS ORDERED: CATAPLEX D PO SCH (08:00)
[2021-04-13] MEDS ORDERED: [UNRECOGNIZED DRUG - OTHER] PO SCH (08:00)
[2021-04-13] MEDS ORDERED: Non-Formulary Medication 1 Each (Vitamin B Complex [B Complex] 1 EACH Tablet) PO SCH (08:00)
[2021-04-13] MEDS ORDERED: INULIN PO SCH (08:00)
--- NOTE | 2021-04-13 18:21 | PCM.PN ---
- General Info Date of Service: 04/13/21 Admission Dx/Problem (Free Text): Admission Diagnosis/Problem Admission Diagnosis/Problem Weakness Functional Status: Reports: Pain Controlled, Tolerating Diet - Review of Systems General: Reports: Weakness, Appetite. Denies: Fever HEENT: Reports: No Symptoms Pulmonary: Reports: No Symptoms Cardiovascular: Reports: No Symptoms Gastrointestinal: Reports: Decreased Appetite. Denies: Abdominal Pain, Diarrhea, Nausea, Vomiting Musculoskeletal: Reports: No Symptoms Skin: Reports: No Symptoms Neurological: Reports: Confusion. Denies: Dizziness, Headache - Patient Data Vitals - Most Recent: Last Vital Signs Temp 36.8 C 04/13/21 16:32 Pulse 81 04/13/21 16:32 Resp 17 04/13/21 16:32 BP 180/81 H 04/13/21 16:32 Pulse Ox 98 04/13/21 16:32 Weight - Most Recent: 61.689 kg I&O - Last 24 Hours: Intake & Output 04/13/21 04/13/21 04/13/21 06:59 14:59 22:59 Intake Total 360 Output Total 500 550 Balance -500 -190 Dread Results Last 24 Hours: Microbiology 04/12/21 14:20 MRSA Surveillance Culture - Final Nasal, Unspecified NO MRSA ISOLATED Med Orders - Current: Current Medications Acetaminophen (Acetaminophen 325 Mg Tab) 650 mg PO Q4H PRN PRN Reason: Pain (Mild 1-3)/fever Aspirin (Aspirin 81 Mg Tab.Chew) 81 mg PO DAILY [facility] Last Admin: 04/13/21 07:17 Dose: 81 mg Documented by: Benazepril HCl (Benazepril 10 Mg Tab) 5 mg PO DAILY [facility] Last Admin: 04/13/21 07:41 Dose: 5 mg Documented by: Cyclobenzaprine HCl (Cyclobenzaprine 10 Mg Tab) 5 mg PO TID PRN PRN Reason: spasms Last Admin: 04/12/21 14:56 Dose: 5 mg Documented by: Hydrochlorothiazide (Hydrochlorothiazide 25 Mg Tab) 25 mg PO DAILY [facility] Last Admin: 04/13/21 07:18 Dose: 25 mg Documented by: Latanoprost (Latanoprost 0.005% Ophth Soln 2.5 Ml Bottle) 0 ml EYEBOTH BEDTIME [facility] Non-Formulary Medication (Brinzolamide/Brimonidine Tart [Simbrinza 1%-0.2% Eye Drops]) 1 drop OP BID [facility] Non-Formulary Medication (Eyedrate) 1 tab PO DAILY [facility] Senna/Docusate Sodium (Docusate Sodium/Sennosides 50-8.6 Mg Tab) 1 tab PO BID PRN PRN Reason: Constipation Sodium Chloride (Sodium Chloride 0.9% 10 Ml Syringe) 10 ml FLUSH ASDIRECTED PRN PRN Reason: Keep Vein Open Discontinued Medications Clonidine HCl (Clonidine 0.1 Mg Tab) 0.1 mg PO ONETIME ONE Stop: 04/12/21 14:16 Last Admin: 04/12/21 14:53 Dose: 0.1 mg Documented by: Non-Formulary Medication (Cataplex-D) 1 tab PO DAILY [facility] Non-Formulary Medication (Prebiotic Inulin) 1 tab PO DAILY [facility] Non-Formulary Medication (Tuna [place]-3 ) 2 tab PO BID [facility] Last Admin: 04/12/21 22:07 Dose: Not Given Documented by: Non-Formulary Medication (Vitamin B Complex [B Complex]) 1 each PO DAILY [facility] - Exam General: Alert, Oriented, Cooperative, No Acute Distress HEENT: Pupils Equal, Pupils Reactive, EOMI, Mucous Membr. Moist/[place] Neck: Supple Lungs: Clear to Auscultation, Normal Respiratory Effort Cardiovascular: Regular Rate, Regular Rhythm Extremities: Normal Inspection Skin: Warm, Dry, Intact Neurological: No New Focal Deficit Psy/Mental Status: Alert, Normal Affect - Patient Data Result Diagrams: 04/12/21 11:20 04/12/21 11:20 Dread Results Last 24 hrs: Microbiology 04/12/21 14:20 MRSA Surveillance Culture - Final Nasal, Unspecified NO MRSA ISOLATED Sepsis Event Note - Evaluation Sepsis Screening Result: No Definite Risk - Focused Exam Vital Signs: Vital Signs Temp Pulse Resp BP BP BP Pulse Ox 04/13/21 16:32 36.8 C 81 17 180/81 H 98 04/13/21 13:16 98 04/13/21 12:40 36.5 C 96 16 144/87 H 98 04/13/21 08:42 36.4 C 77 16 168/91 H 98 04/13/21 07:41 168/91 H - Problem List & Annotations (1) Confusion SNOMED Code(s): 753279424 Code(s): R41.0 - DISORIENTATION, UNSPECIFIED Status: Acute Current Visit: Yes (2) Weakness SNOMED Code(s): 80645540 Code(s): R53.1 - WEAKNESS Status: Acute Current Visit: Yes - Problem List Review Problem List Initiated/Reviewed/Updated: Yes - My Orders Last 24 Hours: My Active Orders 04/12/21 20:00 Brinzolamide/Brimonidine Tart [Simbrinza 1%-0.2% Eye Drops] 1 drop OP BID 04/13/21 08:00 Aspirin 81 mg PO DAILY Benazepril [Lotensin] 5 mg PO DAILY Eyedrate 1 tab PO DAILY hydroCHLOROthiazide 25 mg PO DAILY 04/13/21 20:00 Latanoprost [Xalatan 0.005% Ophth Soln] 0 ml EYEBOTH BEDTIME - Assessment Assessment:: This patient states she feels less mottled today and has having less weakness. She does seem to be a bit confused, and there are some inaccuracies in her answers to simple questions. She has ambulated today, has a fair appetite, but has slept a good deal of the day. - Plan Plan:: Continue his same plan of care with goal of strengthening and improving ability to participate in ADLs. Her goal is to return home to her assisted living apartment; however, her increasing weakness may preclude this plan.
[2021-04-13] MEDS: BRIMONIDINE TART EYEBOTH SCH (20:00)
[2021-04-13] MEDS: BRINZOLAMIDE EYEBOTH SCH (20:00)
[2021-04-13] MEDS: Latanoprost 0.005% Ophth Soln 2.5 ML Bottle EYEBOTH SCH (20:53)
[2021-04-14] MEDS: BRIMONIDINE TART EYEBOTH SCH ×3 (00:37→20:11)
[2021-04-14] MEDS: Cyclobenzaprine 10 MG Tab PO PRN ×2 (00:37→17:55)
[2021-04-14] MEDS: BRINZOLAMIDE EYEBOTH SCH ×3 (00:37→20:11)
[2021-04-14] MEDS: Benazepril 10 MG Tab PO SCH (07:38)
[2021-04-14] MEDS: Aspirin 81 MG Tab.Chew PO SCH (07:38)
[2021-04-14] MEDS: Hydrochlorothiazide 25 MG Tab PO SCH (07:42)
--- NOTE | 2021-04-14 10:22 | PCM.PN ---
- General Info Date of Service: 04/14/21 Admission Dx/Problem (Free Text): Admission Diagnosis/Problem Admission Diagnosis/Problem Weakness Subjective Update: Patient up and sitting in chair, states she feels tired but otherwise about the same. She denies any new pain. Her appetite is good and she denies any nausea or vomiting. She is concerned about her blood pressure being too high. Functional Status: Reports: Tolerating Diet - Review of Systems General: Reports: Weakness, Fatigue. Denies: Fever HEENT: Reports: No Symptoms Pulmonary: Denies: Shortness of Breath, Cough, Wheezing Cardiovascular: Denies: Chest Pain Gastrointestinal: Denies: Abdominal Pain, Decreased Appetite, Diarrhea, Nausea, Vomiting Musculoskeletal: Reports: No Symptoms Skin: Reports: No Symptoms Neurological: Reports: No Symptoms - Patient Data Vitals - Most Recent: Last Vital Signs Temp 36.6 C 04/14/21 07:47 Pulse 82 04/14/21 07:47 Resp 18 04/14/21 07:47 BP 190/93 H 04/14/21 07:47 Pulse Ox 97 04/14/21 07:47 Weight - Most Recent: 61.689 kg I&O - Last 24 Hours: Intake & Output 04/13/21 04/14/21 04/14/21 22:59 06:59 14:59 Intake Total 360 250 Output Total 550 Balance -190 250 Dread Results Last 24 Hours: Microbiology 04/12/21 14:20 MRSA Surveillance Culture - Final Nasal, Unspecified NO MRSA ISOLATED Med Orders - Current: Current Medications Acetaminophen (Acetaminophen 325 Mg Tab) 650 mg PO Q4H PRN PRN Reason: Pain (Mild 1-3)/fever Aspirin (Aspirin 81 Mg Tab.Chew) 81 mg PO DAILY [facility] Last Admin: 04/14/21 07:38 Dose: 81 mg Documented by: Benazepril HCl (Benazepril 10 Mg Tab) 5 mg PO DAILY [facility] Last Admin: 04/14/21 07:38 Dose: 5 mg Documented by: Cyclobenzaprine HCl (Cyclobenzaprine 10 Mg Tab) 5 mg PO TID PRN PRN Reason: spasms Last Admin: 04/14/21 00:37 Dose: 5 mg Documented by: Hydrochlorothiazide (Hydrochlorothiazide 25 Mg Tab) 25 mg PO DAILY [facility] Last Admin: 04/14/21 07:42 Dose: 25 mg Documented by: Latanoprost (Latanoprost 0.005% Ophth Soln 2.5 Ml Bottle) 0 ml EYEBOTH BEDTIME [facility] Last Admin: 04/13/21 20:53 Dose: 1 drop Documented by: Brinzolamide/Brimonidine Tart [ Simbrinza 1%-0.2% Eye DropPt Own 1 drop EYEBOTH BID [facility] Last Admin: 04/14/21 07:42 Dose: 1 drop Documented by: Non-Formulary Medication (Eyedrate) 1 tab PO DAILY [facility] Senna/Docusate Sodium (Docusate Sodium/Sennosides 50-8.6 Mg Tab) 1 tab PO BID PRN PRN Reason: Constipation Sodium Chloride (Sodium Chloride 0.9% 10 Ml Syringe) 10 ml FLUSH ASDIRECTED PRN PRN Reason: Keep Vein Open Discontinued Medications Clonidine HCl (Clonidine 0.1 Mg Tab) 0.1 mg PO ONETIME ONE Stop: 04/12/21 14:16 Last Admin: 04/12/21 14:53 Dose: 0.1 mg Documented by: Non-Formulary Medication (Cataplex-D) 1 tab PO DAILY [facility] Non-Formulary Medication (Prebiotic Inulin) 1 tab PO DAILY [facility] Non-Formulary Medication (Tuna [place]-3 ) 2 tab PO BID [facility] Last Admin: 04/12/21 22:07 Dose: Not Given Documented by: Non-Formulary Medication (Vitamin B Complex [B Complex]) 1 each PO DAILY [facility] - Exam General: Alert, Oriented, Cooperative, No Acute Distress HEENT: Pupils Equal, Pupils Reactive, EOMI, Mucous Membr. Moist/[place] Neck: Supple Lungs: Clear to Auscultation, Normal Respiratory Effort Cardiovascular: Regular Rate, Regular Rhythm Extremities: Normal Inspection Skin: Warm, Dry, Intact Neurological: No New Focal Deficit Psy/Mental Status: Alert, Normal Affect, Normal Mood - Patient Data Result Diagrams: 04/12/21 11:20 04/12/21 11:20 Dread Results Last 24 hrs: Microbiology 04/12/21 14:20 MRSA Surveillance Culture - Final Nasal, Unspecified NO MRSA ISOLATED Sepsis Event Note - Evaluation Sepsis Screening Result: No Definite Risk - Focused Exam Vital Signs: Vital Signs Temp Pulse Resp BP BP Pulse Ox 04/14/21 07:47 36.6 C 82 18 190/93 H 97 04/14/21 07:38 190/93 H 04/14/21 05:00 36.3 C 80 20 168/107 H 98 04/14/21 00:33 36.4 C 78 20 161/89 H 98 - Problem List & Annotations (1) Confusion SNOMED Code(s): 424152627 Code(s): R41.0 - DISORIENTATION, UNSPECIFIED Status: Acute Current Visit: Yes (2) Weakness SNOMED Code(s): 94490408 Code(s): R53.1 - WEAKNESS Status: Acute Current Visit: Yes (3) Hypertension SNOMED Code(s): 56644392 Code(s): I10 - ESSENTIAL (PRIMARY) HYPERTENSION Status: Acute Priority: High Current Visit: Yes Qualifiers: Hypertension type: primary hypertension Qualified Code(s): I10 - Essential (primary) hypertension - Problem List Review Problem List Initiated/Reviewed/Updated: Yes - My Orders Last 24 Hours: My Active Orders 04/13/21 20:00 Latanoprost [Xalatan 0.005% Ophth Soln] 0 ml EYEBOTH BEDTIME - Assessment Assessment:: 1) Hypertension 2) Weakness 3) Confusion - Plan Plan:: Patient has had fairly consistent elevated blood pressures. I will start her on metoprolol 25 mg twice a day and continue to monitor her blood pressure closely. Continue his same plan of care with goal of strengthening and improving ability to participate in ADLs. Her goal is to return home to her assisted living apartment; however, her increasing weakness may preclude this plan. Patient has not made dramatic changes since she was admitted on acute status. She will be changed to swing bed status in preparation for placement planning.
[2021-04-14] MEDS: Metoprolol Tartrate 25 MG Tab PO SCH ×2 (11:28→23:14)
[2021-04-14] MEDS: Latanoprost 0.005% Ophth Soln 2.5 ML Bottle EYEBOTH SCH (20:15)
[2021-04-15] MEDS: Acetaminophen 325 MG Tab PO PRN ×2 (05:08→21:45)
[2021-04-15] MEDS: Cyclobenzaprine 10 MG Tab PO PRN ×2 (05:10→16:45)
[2021-04-15] MEDS: BRIMONIDINE TART EYEBOTH SCH ×3 (07:58→19:36)
[2021-04-15] MEDS: Benazepril 10 MG Tab PO SCH (07:58)
[2021-04-15] MEDS: BRINZOLAMIDE EYEBOTH SCH ×3 (07:58→19:36)
[2021-04-15] MEDS: Hydrochlorothiazide 25 MG Tab PO SCH (07:59)
[2021-04-15] MEDS: Aspirin 81 MG Tab.Chew PO SCH (07:59)
[2021-04-15] MEDS: Metoprolol Tartrate 25 MG Tab PO SCH ×2 (08:00→19:31)
--- NOTE | 2021-04-15 10:32 | PCM.PN ---
- General Info Date of Service: 04/15/21 Admission Dx/Problem (Free Text): Admission Diagnosis/Problem Admission Diagnosis/Problem Weakness Subjective Update: Patient up and sitting in chair, states she feels tired but otherwise about the same. She denies any new pain. Her appetite is good and she denies any nausea or vomiting. She is concerned about her blood pressure being too high. Functional Status: Reports: Tolerating Diet, Ambulating (weakly; needs assistance), Urinating - Review of Systems General: Reports: Weakness, Fatigue. Denies: Fever, Appetite HEENT: Denies: No Symptoms Pulmonary: Denies: Shortness of Breath, Cough Cardiovascular: Denies: Chest Pain, Palpitations, Dyspnea on Exertion, Orthopnea Gastrointestinal: Denies: Abdominal Pain, Diarrhea, Nausea, Vomiting Musculoskeletal: Reports: No Symptoms Skin: Reports: No Symptoms Neurological: Reports: No Symptoms - Patient Data Vitals - Most Recent: Last Vital Signs Temp 36.2 C 04/15/21 06:48 Pulse 77 04/15/21 08:00 Resp 16 04/15/21 06:48 BP 166/80 H 04/15/21 08:00 Pulse Ox 98 04/15/21 06:48 Weight - Most Recent: 59.33 kg Med Orders - Current: Current Medications Acetaminophen (Acetaminophen 325 Mg Tab) 650 mg PO Q4H PRN PRN Reason: Pain (Mild 1-3)/fever Last Admin: 04/15/21 05:08 Dose: 650 mg Documented by: Aspirin (Aspirin 81 Mg Tab.Chew) 81 mg PO DAILY [facility] Last Admin: 04/15/21 07:59 Dose: 81 mg Documented by: Benazepril HCl (Benazepril 10 Mg Tab) 5 mg PO DAILY [facility] Last Admin: 04/15/21 07:58 Dose: 5 mg Documented by: Cyclobenzaprine HCl (Cyclobenzaprine 10 Mg Tab) 5 mg PO TID PRN PRN Reason: spasms Last Admin: 04/15/21 05:10 Dose: 5 mg Documented by: Hydrochlorothiazide (Hydrochlorothiazide 25 Mg Tab) 25 mg PO DAILY [facility] Last Admin: 04/15/21 07:59 Dose: 25 mg Documented by: Latanoprost (Latanoprost 0.005% Ophth Soln 2.5 Ml Bottle) 0 ml EYEBOTH BEDTIME [facility] Last Admin: 04/14/21 20:15 Dose: 1 drop Documented by: Metoprolol Tartrate (Metoprolol Tartrate 25 Mg Tab) 25 mg PO BID [facility] Last Admin: 04/15/21 08:00 Dose: 25 mg Documented by: Brinzolamide/Brimonidine Tart [ Simbrinza 1%-0.2% Eye DropPt Own 1 drop EYEBOTH BID [facility] Last Admin: 04/15/21 08:18 Dose: Not Given Documented by: Non-Formulary Medication (Eyedrate) 1 tab PO DAILY [facility] Senna/Docusate Sodium (Docusate Sodium/Sennosides 50-8.6 Mg Tab) 1 tab PO BID PRN PRN Reason: Constipation Sodium Chloride (Sodium Chloride 0.9% 10 Ml Syringe) 10 ml FLUSH ASDIRECTED PRN PRN Reason: Keep Vein Open Discontinued Medications Clonidine HCl (Clonidine 0.1 Mg Tab) 0.1 mg PO ONETIME ONE Stop: 04/12/21 14:16 Last Admin: 04/12/21 14:53 Dose: 0.1 mg Documented by: Metoprolol Tartrate (Metoprolol Tartrate 25 Mg Tab) 25 mg PO Q12H [facility] Last Admin: 04/14/21 23:14 Dose: 25 mg Documented by: Non-Formulary Medication (Cataplex-D) 1 tab PO DAILY [facility] Non-Formulary Medication (Prebiotic Inulin) 1 tab PO DAILY [facility] Non-Formulary Medication (Tuna [place]-3 ) 2 tab PO BID [facility] Last Admin: 04/12/21 22:07 Dose: Not Given Documented by: Non-Formulary Medication (Vitamin B Complex [B Complex]) 1 each PO DAILY [facility] - Exam General: Alert, Oriented, Cooperative, No Acute Distress HEENT: Pupils Equal, Pupils Reactive, EOMI, Mucous Membr. Moist/[place] Neck: Supple Lungs: Clear to Auscultation, Normal Respiratory Effort Cardiovascular: Regular Rate, Regular Rhythm Extremities: Normal Inspection Skin: Warm, Dry, Intact Neurological: No New Focal Deficit - Patient Data Result Diagrams: 04/12/21 11:20 04/12/21 11:20 Sepsis Event Note - Evaluation Sepsis Screening Result: No Definite Risk - Focused Exam Vital Signs: Vital Signs Temp Pulse Pulse Resp BP BP BP 04/15/21 08:00 77 166/80 H 04/15/21 07:58 166/80 H 04/15/21 06:48 36.2 C 77 16 166/80 H 04/15/21 03:00 36.6 C 69 18 173/84 H 04/14/21 23:14 78 166/80 H 04/14/21 23:13 36.6 C 78 16 166/80 H Pulse Ox 04/15/21 08:00 04/15/21 07:58 04/15/21 06:48 98 04/15/21 03:00 97 04/14/21 23:14 04/14/21 23:13 98 - Problem List & Annotations (1) Confusion SNOMED Code(s): 662067203 Code(s): R41.0 - DISORIENTATION, UNSPECIFIED Status: Acute Current Visit: Yes (2) Weakness SNOMED Code(s): 00315179 Code(s): R53.1 - WEAKNESS Status: Acute Current Visit: Yes (3) Hypertension SNOMED Code(s): 36857906 Code(s): I10 - ESSENTIAL (PRIMARY) HYPERTENSION Status: Acute Priority: High Current Visit: Yes Qualifiers: Hypertension type: primary hypertension Qualified Code(s): I10 - Essential (primary) hypertension - Problem List Review Problem List Initiated/Reviewed/Updated: Yes - My Orders Last 24 Hours: My Active Orders 04/15/21 08:00 Metoprolol Tartrate [Lopressor] 25 mg PO BID - Assessment Assessment:: 1) Hypertension 2) Weakness 3) Confusion - Plan Plan:: Patient has had fairly consistent elevated blood pressures. I will start her on metoprolol 25 mg twice a day and continue to monitor her blood pressure closely. Continue his same plan of care with goal of strengthening and improving ability to participate in ADLs. Her goal is to return home to her assisted living apartment; however, her increasing weakness may preclude this plan. Patient has not made dramatic changes since she was admitted on acute status. She will be changed to swing bed status in preparation for placement planning.
[2021-04-15] MEDS: Latanoprost 0.005% Ophth Soln 2.5 ML Bottle EYEBOTH SCH (19:36)
[2021-04-16] MEDS: Aspirin 81 MG Tab.Chew PO SCH (08:07)
[2021-04-16] MEDS: BRINZOLAMIDE EYEBOTH SCH (08:12)
[2021-04-16] MEDS: Hydrochlorothiazide 25 MG Tab PO SCH (08:12)
[2021-04-16] MEDS: BRIMONIDINE TART EYEBOTH SCH (08:12)
[2021-04-16] MEDS: Metoprolol Tartrate 25 MG Tab PO SCH (08:18)
[2021-04-16 08:19] VITALS: BP 165/98; PULSE 71
[2021-04-16] MEDS: Benazepril 10 MG Tab PO SCH (08:19)
== END 2021-04-16 09:35 | disposition swing bed (61) | DRG 948 ==
LOC: LB.ED 11:18 → LB.MS 12:15
PROVIDERS: ADMIT Nurse Practitioner; ATTEND Nurse Practitioner
DX: R53.1 Weakness (principal); I10 Essential (primary) hypertension; R41.0 Disorientation, unspecified; H54.7 Unspecified visual loss; G89.29 Other chronic pain; M54.9 Dorsalgia, unspecified; M19.90 Unspecified osteoarthritis, unspecified site; H40.9 Unspecified glaucoma; G43.909 Migraine, unspecified, not intractable, without status migrainosus; Z96.659 Presence of unspecified artificial knee joint; Z88.0 Allergy status to penicillin; Z79.82 Long term (current) use of aspirin; Z79.899 Other long term (current) drug therapy; Z86.19 Personal history of other infectious and parasitic diseases; Z98.49 Cataract extraction status, unspecified eye; Z90.89 Acquired absence of other organs; Z20.822 Contact with and (suspected) exposure to COVID-19
CPT/HCPCS: 36415; 70450; 80048; 81001; 85025; 93005; 97165-GO; 99285-25; A9270-GY; U0002

== ENCOUNTER 2021-04-16 07:55 | Inpatient (IN) | payer MEDICARE, BC ==
[2021-04-16] MEDS ORDERED: Cyclobenzaprine 10 MG Tab PO PRN (09:33)
[2021-04-16] MEDS ORDERED: PETROLATUM WHITE EYEBOTH PRN (09:33)
[2021-04-16] MEDS ORDERED: [UNRECOGNIZED DRUG - OTHER] EYEBOTH PRN (09:33)
[2021-04-16] MEDS ORDERED: MINERAL OIL EYEBOTH PRN (09:33)
[2021-04-16] MEDS: Polyvinyl Alcohol 1.4% Ophth Soln 15 ML Bottle EYEBOTH SCH ×7 (09:45→22:24)
[2021-04-16] MEDS ORDERED: Tuberculin, PPD 5 Units/0.1 ML 1 ML MDV IDERM ONE (12:56)
[2021-04-16] MEDS: Latanoprost 0.005% Ophth Soln 2.5 ML Bottle EYEBOTH SCH (19:30)
[2021-04-16] MEDS: Non-Formulary Medication 1 Each (Brinzolamide/Brimonidine Tart [Simbrinza 1%-0.2% Eye Drop EYEBOTH SCH (19:32)
[2021-04-16] MEDS: Metoprolol Tartrate 25 MG Tab PO SCH (20:14)
[2021-04-17] MEDS: Polyvinyl Alcohol 1.4% Ophth Soln 15 ML Bottle EYEBOTH SCH ×4 (03:00→08:55)
[2021-04-17] MEDS: Hydrochlorothiazide 25 MG Tab PO SCH (08:03)
[2021-04-17] MEDS: Benazepril 10 MG Tab PO SCH (08:03)
[2021-04-17] MEDS: Metoprolol Tartrate 25 MG Tab PO SCH ×2 (08:03→19:40)
[2021-04-17] MEDS: Aspirin 81 MG Tab.Chew PO SCH (08:03)
[2021-04-17] MEDS: Non-Formulary Medication 1 Each (Brinzolamide/Brimonidine Tart [Simbrinza 1%-0.2% Eye Drop EYEBOTH SCH ×2 (08:04→19:39)
[2021-04-17] MEDS: Latanoprost 0.005% Ophth Soln 2.5 ML Bottle EYEBOTH SCH (19:39)
[2021-04-17] MEDS: Polyvinyl Alcohol 1.4% Ophth Soln 15 ML Bottle EYEBOTH PRN (19:44)
[2021-04-18] MEDS: Aspirin 81 MG Tab.Chew PO SCH (07:12)
[2021-04-18] MEDS: Hydrochlorothiazide 25 MG Tab PO SCH (07:12)
[2021-04-18] MEDS: Benazepril 10 MG Tab PO SCH (07:32)
[2021-04-18] MEDS: Metoprolol Tartrate 25 MG Tab PO SCH ×2 (07:33→19:21)
[2021-04-18] MEDS: Non-Formulary Medication 1 Each (Brinzolamide/Brimonidine Tart [Simbrinza 1%-0.2% Eye Drop EYEBOTH SCH ×2 (07:50→20:11)
[2021-04-18] MEDS: Latanoprost 0.005% Ophth Soln 2.5 ML Bottle EYEBOTH SCH (20:11)
[2021-04-19] MEDS: Aspirin 81 MG Tab.Chew PO SCH (07:18)
[2021-04-19] MEDS: Benazepril 10 MG Tab PO SCH (07:18)
[2021-04-19] MEDS: Hydrochlorothiazide 25 MG Tab PO SCH (07:21)
[2021-04-19] MEDS: Non-Formulary Medication 1 Each (Brinzolamide/Brimonidine Tart [Simbrinza 1%-0.2% Eye Drop EYEBOTH SCH ×2 (07:21→19:45)
[2021-04-19] MEDS: Metoprolol Tartrate 25 MG Tab PO SCH ×2 (07:21→19:43)
[2021-04-19] MEDS: Latanoprost 0.005% Ophth Soln 2.5 ML Bottle EYEBOTH SCH (19:44)
[2021-04-20] MEDS: Aspirin 81 MG Tab.Chew PO SCH (07:53)
[2021-04-20] MEDS: Metoprolol Tartrate 25 MG Tab PO SCH ×2 (07:53→20:01)
[2021-04-20] MEDS: Benazepril 10 MG Tab PO SCH (07:53)
[2021-04-20] MEDS: Hydrochlorothiazide 25 MG Tab PO SCH (07:53)
[2021-04-20] MEDS: Non-Formulary Medication 1 Each (Brinzolamide/Brimonidine Tart [Simbrinza 1%-0.2% Eye Drop EYEBOTH SCH ×2 (07:54→20:03)
[2021-04-20] MEDS: Latanoprost 0.005% Ophth Soln 2.5 ML Bottle EYEBOTH SCH (20:02)
[2021-04-20] MEDS: Melatonin 3 MG Tab PO PRN (20:32)
[2021-04-21] MEDS: Metoprolol Tartrate 25 MG Tab PO SCH ×2 (08:11→20:57)
[2021-04-21] MEDS: Hydrochlorothiazide 25 MG Tab PO SCH (08:11)
[2021-04-21] MEDS: Benazepril 10 MG Tab PO SCH (08:11)
[2021-04-21] MEDS: Aspirin 81 MG Tab.Chew PO SCH (08:11)
[2021-04-21] MEDS: Non-Formulary Medication 1 Each (Brinzolamide/Brimonidine Tart [Simbrinza 1%-0.2% Eye Drop EYEBOTH SCH ×2 (08:12→20:56)
[2021-04-21] MEDS: Melatonin 3 MG Tab PO PRN (20:56)
[2021-04-21] MEDS: Latanoprost 0.005% Ophth Soln 2.5 ML Bottle EYEBOTH SCH (20:58)
[2021-04-22] MEDS: Aspirin 81 MG Tab.Chew PO SCH (07:51)
[2021-04-22] MEDS: Hydrochlorothiazide 25 MG Tab PO SCH (07:51)
[2021-04-22] MEDS: Non-Formulary Medication 1 Each (Brinzolamide/Brimonidine Tart [Simbrinza 1%-0.2% Eye Drop EYEBOTH SCH ×2 (07:51→19:29)
[2021-04-22] MEDS: Acetaminophen 325 MG Tab PO PRN (07:51)
[2021-04-22] MEDS: Metoprolol Tartrate 25 MG Tab PO SCH ×2 (07:52→19:38)
[2021-04-22] MEDS: Benazepril 10 MG Tab PO SCH (07:53)
[2021-04-22] MEDS: Latanoprost 0.005% Ophth Soln 2.5 ML Bottle EYEBOTH SCH (19:29)
[2021-04-22] MEDS: Melatonin 3 MG Tab PO PRN (20:28)
[2021-04-23] MEDS: Acetaminophen 325 MG Tab PO PRN (03:44)
--- NOTE | 2021-04-23 07:09 | PN ---
DATE OF VISIT: 04/22/2021 SUBJECTIVE: An 85-year-old lady here on swing bed status. She has been doing well. Nursing staff has not had any concerns other than they noticed this morning that her 2nd and 3rd toe on the left foot were little more red and dusky looking and the redness seemed to radiate up into the distal foot area. The patient is not complaining of any pain and denies having any injuries. OBJECTIVE: EXTREMITIES: I examined the patient's foot today and there was a little bit duskiness involving the entire foot. I do not see anything more significant involving the 2nd and 3rd toes, but she is sitting in a chair with her feet in a dependent position. The toes and foot are not warm or hot to touch and the skin is intact. The patient tells me that she feels fine. LUNGS: Clear. CARDIAC: Heart sounds distinct without murmurs. SKIN: Otherwise warm and dry. CRS/MODL /[id number]
[2021-04-23] MEDS: Aspirin 81 MG Tab.Chew PO SCH (07:45)
[2021-04-23] MEDS: Benazepril 10 MG Tab PO SCH (07:45)
[2021-04-23] MEDS: Hydrochlorothiazide 25 MG Tab PO SCH (07:45)
[2021-04-23] MEDS: Metoprolol Tartrate 25 MG Tab PO SCH ×2 (07:46→20:07)
[2021-04-23] MEDS: Non-Formulary Medication 1 Each (Brinzolamide/Brimonidine Tart [Simbrinza 1%-0.2% Eye Drop EYEBOTH SCH ×2 (07:46→20:06)
[2021-04-23] MEDS: Polyvinyl Alcohol 1.4% Ophth Soln 15 ML Bottle EYEBOTH PRN (20:04)
[2021-04-23] MEDS: Latanoprost 0.005% Ophth Soln 2.5 ML Bottle EYEBOTH SCH (20:06)
[2021-04-23] MEDS: Melatonin 3 MG Tab PO PRN (20:07)
[2021-04-24] MEDS: Hydrochlorothiazide 25 MG Tab PO SCH (07:53)
[2021-04-24] MEDS: Aspirin 81 MG Tab.Chew PO SCH (07:54)
[2021-04-24] MEDS: Metoprolol Tartrate 25 MG Tab PO SCH ×2 (08:07→19:57)
[2021-04-24] MEDS: Benazepril 10 MG Tab PO SCH (08:07)
[2021-04-24] MEDS: Non-Formulary Medication 1 Each (Brinzolamide/Brimonidine Tart [Simbrinza 1%-0.2% Eye Drop EYEBOTH SCH ×2 (08:07→19:56)
[2021-04-24] MEDS ORDERED: FIBERCON PO PRN (11:36)
--- NOTE | 2021-04-24 12:59 | PCM.CONSN ---
- General Info Date of Service: 04/24/21 - Patient Data Vitals - Most Recent: Last Vital Signs Temp 36.4 C 04/24/21 08:00 Pulse 69 04/24/21 08:07 Resp 18 04/24/21 08:00 BP 167/91 H 04/24/21 08:07 Pulse Ox 98 04/24/21 08:00 Weight - Most Recent: 61.054 kg Med Orders - Current: Current Medications Acetaminophen (Acetaminophen 325 Mg Tab) 650 mg PO Q4H PRN PRN Reason: Pain Last Admin: 04/23/21 03:44 Dose: 650 mg Documented by: Artificial Tears (Polyvinyl Alcohol 1.4% Ophth Soln 15 Ml Bottle) 0.05 ml EYEBOTH Q2H PRN PRN Reason: Dry Eyes Last Admin: 04/23/21 20:04 Dose: 0.05 ml Documented by: Aspirin (Aspirin 81 Mg Tab.Chew) 81 mg PO DAILY [facility] Last Admin: 04/24/21 07:54 Dose: 81 mg Documented by: Benazepril HCl (Benazepril 10 Mg Tab) 5 mg PO DAILY [facility] Last Admin: 04/24/21 08:07 Dose: 5 mg Documented by: Cyclobenzaprine HCl (Cyclobenzaprine 10 Mg Tab) 5 mg PO TID PRN PRN Reason: spasms Hydrochlorothiazide (Hydrochlorothiazide 25 Mg Tab) 25 mg PO DAILY [facility] Last Admin: 04/24/21 07:53 Dose: 25 mg Documented by: Latanoprost (Latanoprost 0.005% Ophth Soln 2.5 Ml Bottle) 0.05 ml EYEBOTH BEDTIME [facility] Last Admin: 04/23/21 20:06 Dose: 1 drop Documented by: Melatonin (Melatonin 3 Mg Tab) 6 mg PO BEDTIME PRN PRN Reason: sleep Last Admin: 04/23/21 20:07 Dose: 3 mg Documented by: Metoprolol Tartrate (Metoprolol Tartrate 25 Mg Tab) 25 mg PO BID [facility] Last Admin: 04/24/21 08:07 Dose: 25 mg Documented by: Non-Formulary Medication (Brinzolamide/Brimonidine Tart [Simbrinza 1%-0.2% Eye Drops]) 1 drop EYEBOTH BID [facility] Last Admin: 04/24/21 08:07 Dose: 1 drop Documented by: Non-Formulary Medication (Mineral Oil/Petrolatum,White [Systane Nighttime Eye Ointment]) 1 applic EYEBOTH BEDTIME PRN PRN Reason: Dry Eyes Fibercon Tablets 1 each PO DAILY PRN PRN Reason: Other Discontinued Medications Artificial Tears (Polyvinyl Alcohol 1.4% Ophth Soln 15 Ml Bottle) 0.05 ml EYEBOTH Q2H [facility] Last Admin: 04/17/21 08:55 Dose: Not Given Documented by: Senna/Docusate Sodium (Docusate Sodium/Sennosides 50-8.6 Mg Tab) 1 tab PO BID PRN PRN Reason: Constipation Senna/Docusate Sodium (Docusate Sodium/Sennosides 50-8.6 Mg Tab) 1 tab PO DAILY [facility] Last Admin: 04/24/21 08:19 Dose: Not Given Documented by: Tuberculin PPD (Tuberculin, Ppd 5 Units/0.1 Ml 1 Ml Mdv) 5 unit IDERM ONETIME ONE Stop: 04/16/21 12:57 Last Admin: 04/16/21 20:10 Dose: 5 unit Documented by: Sepsis Event Note - Evaluation Sepsis Screening Result: No Definite Risk - Focused Exam Vital Signs: Vital Signs Temp Pulse Pulse Resp BP BP Pulse Ox 04/24/21 08:07 69 167/91 H 04/24/21 08:00 36.4 C 69 18 167/91 H 98 Consult PN Assessment/Plan Procedures: Procedures ASSAY OF FOLIC ACID SERUM (06/21/19) ASSAY OF FREE THYROXINE (04/13/18) ASSAY OF MAGNESIUM (05/11/18) ASSAY OF TROPONIN QUANT (04/17/20) ASSAY OF VITAMIN A (05/11/18) ASSAY THYROID STIM HORMONE (04/09/21) ASSAY TRIIODOTHYRONINE (T3) (04/13/18) C DIFF AMPLIFIED PROBE (01/11/20) C-REACTIVE PROTEIN HS (06/21/19) COMP SCREEN MAMMOGRAM ADD-ON (09/05/14) COMPLETE CBC W/AUTO DIFF WBC (04/12/21) COMPREHEN METABOLIC PANEL (10/25/20) COMPUTER DX MAMMOGRAM ADD-ON (08/18/13) CT HEAD/BRAIN W/O DYE (04/12/21) ELECTROCARDIOGRAM TRACING (04/12/21) EMERGENCY DEPT VISIT (04/12/21) EMERGENCY DEPT VISIT (04/17/20) EMERGENCY DEPT VISIT (05/05/19) FECES CULTURE AEROBIC BACT (06/21/19) GAIT TRAINING THERAPY (01/02/21) IMMUNOASSAY NONANTIBODY (06/21/19) INCISE FINGER TENDON SHEATH (09/11/15) LIPID PANEL (04/13/18) LOWER EXTREMITY STUDY (12/21/20) MANUAL THERAPY 1/> REGIONS (07/17/18) METABOLIC PANEL TOTAL CA (04/12/21) MICROBE SUSCEPTIBLE YAMILKA (02/22/19) OT EVAL LOW COMPLEX 30 MIN (04/12/21) OT RE-EVAL EST PLAN CARE (01/19/21) OVA AND PARASITES SMEARS (06/06/20) PT EVAL LOW COMPLEX 20 MIN (11/01/20) PT RE-EVAL EST PLAN CARE (01/02/21) RBC ANTIBODY SCREEN (11/29/16) RBC SED RATE NONAUTOMATED (06/21/19) ROUTINE VENIPUNCTURE (04/12/21) SHIGA-LIKE TOXIN AG IA (06/21/19) SMEAR COMPLEX STAIN (06/06/20) STOOL CULTR AEROBIC BACT EA (06/21/19) THERAPEUTIC ACTIVITIES (01/02/21) THERAPEUTIC EXERCISES (01/02/21) TRANSVAGINAL US NON-OB (12/29/17) TTE W/DOPPLER COMPLETE (09/30/18) URINALYSIS AUTO W/O SCOPE (04/09/21) URINALYSIS AUTO W/SCOPE (04/12/21) URINE BACTERIA CULTURE (02/22/19) URINE CULTURE/COLONY COUNT (02/22/19) US EXAM PELVIC COMPLETE (12/29/17) VITAMIN B-12 (05/11/18) VITAMIN D 25 HYDROXY (01/12/19) X-RAY EXAM CHEST 1 VIEW (04/17/20) X-RAY EXAM CHEST 2 VIEWS (03/08/21) X-RAY EXAM L-S SPINE 2/3 VWS (03/30/21) X-RAY EXAM NECK SPINE 2-3 VW (03/30/21) X-RAY EXAM OF KNEE 1 OR 2 (12/24/16) X-RAY EXAM OF KNEE 3 (04/17/20) X-RAY EXAM THORAC SPINE 2VWS (03/30/21) X-RAY EXAM THORACOLMB 2/> VW (12/20/19) Problem List Initiated/Reviewed/Updated: Yes Plan: Rogerio Frost Hospitalist CONSULTATION NOTE: [facility]ospital[facility] was contacted by Bernabe Rviera with request of consultation for medical management. Reason for consultation:? Parkinson's disease HPI: Patient is an 85-year-old female who was admitted to swing bed for PT and OT therapies for generalized weakness, decline in overall strength and mobility. PT has been concerned for possible Parkinson's disease as patient has been takin g small shuffling steps. Patient is in a swing bed at this time. Reviewed labs from 04/12/2021 Reviewed past medical history and medications Patient not evaluated via camera says Parkinson's is difficult to diagnose via telemedicine. Recommendations: Based on chart review, information gathered from discussion with local provider, review of labs and imaging as noted above, I recommend the following: Essential criterion for PD requires bradykinesia, resting tremor or rigidity (leadpipe resistance). These are difficult to evaluate and diagnose with the limitations inherent to telemedicine at this time. -Recommend evaluation by outpatient clinician and consideration for starting dopaminergic drugs. Marked improvement/response to these medications could increase confidence in this diagnosis. Discussed above plan with local provider. Thank you for including Rogerio Lopez in the patients care. This service is available for further assistance as requested by your care team by calling [phone].
[2021-04-24] MEDS: Latanoprost 0.005% Ophth Soln 2.5 ML Bottle EYEBOTH SCH (19:55)
[2021-04-24] MEDS: Melatonin 3 MG Tab PO PRN (19:56)
[2021-04-24] MEDS: Polyvinyl Alcohol 1.4% Ophth Soln 15 ML Bottle EYEBOTH PRN (19:56)
[2021-04-25] MEDS: Benazepril 10 MG Tab PO SCH (07:45)
[2021-04-25] MEDS: Aspirin 81 MG Tab.Chew PO SCH (07:51)
[2021-04-25] MEDS: Metoprolol Tartrate 25 MG Tab PO SCH ×2 (07:51→20:06)
[2021-04-25] MEDS: Non-Formulary Medication 1 Each (Brinzolamide/Brimonidine Tart [Simbrinza 1%-0.2% Eye Drop EYEBOTH SCH ×2 (07:51→20:07)
[2021-04-25] MEDS: Hydrochlorothiazide 25 MG Tab PO SCH (07:52)
[2021-04-25] MEDS: Polyvinyl Alcohol 1.4% Ophth Soln 15 ML Bottle EYEBOTH PRN (20:07)
[2021-04-25] MEDS: Latanoprost 0.005% Ophth Soln 2.5 ML Bottle EYEBOTH SCH (20:08)
[2021-04-25] MEDS: Melatonin 3 MG Tab PO PRN (20:08)
[2021-04-25] MEDS: Acetaminophen 325 MG Tab PO PRN (20:08)
[2021-04-26] MEDS: Aspirin 81 MG Tab.Chew PO SCH (08:28)
[2021-04-26] MEDS: Non-Formulary Medication 1 Each (Brinzolamide/Brimonidine Tart [Simbrinza 1%-0.2% Eye Drop EYEBOTH SCH ×2 (08:29→20:52)
[2021-04-26] MEDS: Hydrochlorothiazide 25 MG Tab PO SCH (08:29)
[2021-04-26] MEDS: Metoprolol Tartrate 25 MG Tab PO SCH ×2 (08:34→20:53)
[2021-04-26] MEDS: Benazepril 10 MG Tab PO SCH (08:34)
[2021-04-26] MEDS: Latanoprost 0.005% Ophth Soln 2.5 ML Bottle EYEBOTH SCH (20:53)
[2021-04-26] MEDS: Melatonin 3 MG Tab PO PRN (21:51)
[2021-04-27] MEDS: Benazepril 10 MG Tab PO SCH (07:23)
[2021-04-27] MEDS: Hydrochlorothiazide 25 MG Tab PO SCH (07:23)
[2021-04-27] MEDS: Aspirin 81 MG Tab.Chew PO SCH (07:23)
[2021-04-27] MEDS: Non-Formulary Medication 1 Each (Brinzolamide/Brimonidine Tart [Simbrinza 1%-0.2% Eye Drop EYEBOTH SCH ×2 (07:24→19:37)
[2021-04-27] MEDS: Metoprolol Tartrate 25 MG Tab PO SCH ×2 (07:24→19:33)
[2021-04-27] MEDS: Latanoprost 0.005% Ophth Soln 2.5 ML Bottle EYEBOTH SCH (19:33)
[2021-04-28] MEDS: Benazepril 10 MG Tab PO SCH (07:40)
[2021-04-28] MEDS: Hydrochlorothiazide 25 MG Tab PO SCH (07:40)
[2021-04-28] MEDS: Metoprolol Tartrate 25 MG Tab PO SCH ×2 (07:40→20:37)
[2021-04-28] MEDS: Aspirin 81 MG Tab.Chew PO SCH (07:40)
[2021-04-28] MEDS: Non-Formulary Medication 1 Each (Brinzolamide/Brimonidine Tart [Simbrinza 1%-0.2% Eye Drop EYEBOTH SCH ×2 (07:41→20:37)
--- NOTE | 2021-04-28 11:43 | PN ---
DATE OF VISIT: 04/28/2021 SUBJECTIVE: Tere is doing much better in terms of her cognition and her ability to ambulate. She is ambulating quite nicely at this time. She denies any dizziness or weakness. Her blood pressure has been ranging 193/89, which is a mild increase compared to yesterday. Her heart rate is 78. She did go to the [facility] yesterday morning for bingo. Her appetite is good and she has no complaints. OBJECTIVE: LUNGS: On physical examination, her chest is clear. HEART: She does have a significant heart murmur heard throughout her precordium. ABDOMEN: Soft. IMPRESSION: Stable. PLAN: No changes. We did discuss the possibility of getting her started on amantadine that might help her if this is an early manifestation of parkinsonism, although today she has no manifestations evident on exam, also to help her with her cognition. This might be useful as well. Unfortunately, the this drug is not available in our formulary. We start her on it once she is discharged from here. ELIGIO /[id number]
[2021-04-28] MEDS: Latanoprost 0.005% Ophth Soln 2.5 ML Bottle EYEBOTH SCH (20:40)
[2021-04-29] MEDS: Benazepril 10 MG Tab PO SCH (08:52)
[2021-04-29] MEDS: Aspirin 81 MG Tab.Chew PO SCH (08:53)
[2021-04-29] MEDS: Non-Formulary Medication 1 Each (Brinzolamide/Brimonidine Tart [Simbrinza 1%-0.2% Eye Drop EYEBOTH SCH ×2 (08:53→19:56)
[2021-04-29] MEDS: Hydrochlorothiazide 25 MG Tab PO SCH (08:53)
[2021-04-29] MEDS: Metoprolol Tartrate 25 MG Tab PO SCH ×2 (08:53→19:54)
[2021-04-29] MEDS: Latanoprost 0.005% Ophth Soln 2.5 ML Bottle EYEBOTH SCH (19:58)
[2021-04-30] MEDS: Non-Formulary Medication 1 Each (Brinzolamide/Brimonidine Tart [Simbrinza 1%-0.2% Eye Drop EYEBOTH SCH ×2 (08:04→20:16)
[2021-04-30] MEDS: Metoprolol Tartrate 25 MG Tab PO SCH ×2 (08:08→20:16)
[2021-04-30] MEDS: Hydrochlorothiazide 25 MG Tab PO SCH (08:08)
[2021-04-30] MEDS: Benazepril 10 MG Tab PO SCH (08:08)
[2021-04-30] MEDS: Aspirin 81 MG Tab.Chew PO SCH (08:08)
[2021-04-30] MEDS: Latanoprost 0.005% Ophth Soln 2.5 ML Bottle EYEBOTH SCH (20:18)
[2021-04-30] MEDS: Melatonin 3 MG Tab PO PRN (20:28)
[2021-05-01] MEDS: Hydrochlorothiazide 25 MG Tab PO SCH (07:27)
[2021-05-01] MEDS: Metoprolol Tartrate 25 MG Tab PO SCH ×2 (07:27→20:18)
[2021-05-01] MEDS: Non-Formulary Medication 1 Each (Brinzolamide/Brimonidine Tart [Simbrinza 1%-0.2% Eye Drop EYEBOTH SCH ×2 (07:27→20:19)
[2021-05-01] MEDS: Benazepril 10 MG Tab PO SCH (07:27)
[2021-05-01] MEDS: Aspirin 81 MG Tab.Chew PO SCH (07:27)
[2021-05-01] MEDS: Latanoprost 0.005% Ophth Soln 2.5 ML Bottle EYEBOTH SCH ×2 (20:15→20:25)
[2021-05-01] MEDS: Polyvinyl Alcohol 1.4% Ophth Soln 15 ML Bottle EYEBOTH PRN (20:18)
[2021-05-01] MEDS: Melatonin 3 MG Tab PO PRN (20:18)
[2021-05-02] MEDS: Aspirin 81 MG Tab.Chew PO SCH (07:27)
[2021-05-02] MEDS: Hydrochlorothiazide 25 MG Tab PO SCH (07:27)
[2021-05-02] MEDS: Non-Formulary Medication 1 Each (Brinzolamide/Brimonidine Tart [Simbrinza 1%-0.2% Eye Drop EYEBOTH SCH ×2 (07:28→20:41)
[2021-05-02] MEDS: Metoprolol Tartrate 25 MG Tab PO SCH ×2 (07:29→20:40)
[2021-05-02] MEDS: Benazepril 10 MG Tab PO SCH (07:29)
[2021-05-02] MEDS: Melatonin 3 MG Tab PO PRN (20:39)
[2021-05-02] MEDS: Acetaminophen 325 MG Tab PO PRN (20:39)
[2021-05-02] MEDS: Polyvinyl Alcohol 1.4% Ophth Soln 15 ML Bottle EYEBOTH PRN (20:41)
[2021-05-02] MEDS: Latanoprost 0.005% Ophth Soln 2.5 ML Bottle EYEBOTH SCH (20:41)
[2021-05-03] MEDS: Benazepril 10 MG Tab PO SCH (08:24)
[2021-05-03] MEDS: Aspirin 81 MG Tab.Chew PO SCH (08:25)
[2021-05-03] MEDS: Hydrochlorothiazide 25 MG Tab PO SCH (08:26)
[2021-05-03] MEDS: Metoprolol Tartrate 25 MG Tab PO SCH (08:26)
[2021-05-03 08:27] VITALS: BP 178/70; PULSE 59
[2021-05-03] MEDS: Non-Formulary Medication 1 Each (Brinzolamide/Brimonidine Tart [Simbrinza 1%-0.2% Eye Drop EYEBOTH SCH (08:29)
== END 2021-05-03 09:45 | DRG 948 ==
LOC: LB.MS 08:43
PROVIDERS: ADMIT Physician Assistant; ATTEND Physician Assistant
DX: R53.1 Weakness (principal); R41.0 Disorientation, unspecified; I10 Essential (primary) hypertension; G20 Parkinson's disease
CPT/HCPCS: 86580; 97110-GP; 97112-GP; 97116-GP; 97161-GP; 97530-GO; 97530-GP; 97535-GO; A9270-GY

== ENCOUNTER 2022-08-31 23:34 | Emergency (ER) | payer MEDICARE, BC ==
[2022-08-31] MEDS ORDERED: Sodium Chloride 0.9% 1,000 ML IV ONE (23:54)
[2022-08-31] MEDS ORDERED: Potassium Chloride 20 MEQ Tab.ER ONE (23:55)
[2022-09-01 00:56] LABS: ESTIMATED GFR 83 mL/min (>60)
[2022-09-01] MEDS ORDERED: Potassium Chloride 20 MEQ Tab.ER PO ONE (01:02)
[2022-09-01] MEDS ORDERED: NS + KCl 20mEq/L 1,000 ML IV SCH (01:15)
[2022-09-01] MEDS ORDERED: traMADol 50 MG Tab PO ONE (05:01)
[2022-09-01] MEDS ORDERED: traMADol 50 MG Tab ONE (05:14)
[2022-09-01 06:16] LABS: ESTIMATED GFR 83 mL/min (>60)
[2022-09-01 06:46] VITALS: BP 152/78; PULSE 73
== END 2022-09-01 06:30 ==
LOC: LB.ED 23:34
DX: E86.0 Dehydration (principal); E87.6 Hypokalemia; I10 Essential (primary) hypertension; M19.90 Unspecified osteoarthritis, unspecified site; Z88.0 Allergy status to penicillin; Z79.82 Long term (current) use of aspirin; Z79.899 Other long term (current) drug therapy
CPT/HCPCS: 36415; 80048; 80053; 85025; 96365; 96366; 99284-25; A9270-GY; J3480; J7030

== ENCOUNTER 2023-02-27 07:50 | Day surgery (SDC) | payer MEDICARE, BC ==
[2023-02-27] MEDS: Sodium Chloride 0.9% 1,000 ML IV SCH (08:32)
[2023-02-27] MEDS ORDERED: Propofol 200 MG/20 ML SDV ONE (09:15)
[2023-02-27 09:40] VITALS: BP 128/74; PULSE 61
== END 2023-02-27 10:45 ==
LOC: LB.SDS 07:50
PROVIDERS: ATTEND Surgery
DX: R13.10 Dysphagia, unspecified (principal); R10.13 Epigastric pain; I10 Essential (primary) hypertension; R29.898 Other symptoms and signs involving the musculoskeletal system; R25.1 Tremor, unspecified; G20 Parkinson's disease; K21.9 Gastro-esophageal reflux disease without esophagitis; E78.5 Hyperlipidemia, unspecified; G47.00 Insomnia, unspecified; M19.90 Unspecified osteoarthritis, unspecified site; M85.80 Other specified disorders of bone density and structure, unspecified site; M81.0 Age-related osteoporosis without current pathological fracture; I73.9 Peripheral vascular disease, unspecified; E55.9 Vitamin D deficiency, unspecified; Z88.0 Allergy status to penicillin; Z79.899 Other long term (current) drug therapy; Z79.82 Long term (current) use of aspirin; Z98.890 Other specified postprocedural states
CPT/HCPCS: J2704; J7030

== ENCOUNTER 2024-07-18 11:28 | Emergency (ER) | payer MEDICARE, BC ==
[2024-07-18] MEDS: Ketorolac 15 MG/ML SDV IM ONE (12:05)
[2024-07-18] MEDS ORDERED: Naproxen 500 MG Tab ONE (13:30)
[2024-07-18] MEDS ORDERED: Cyclobenzaprine 10 MG Tab ONE (13:30)
[2024-07-18 14:11] VITALS: BP 112/74; PULSE 88
== END 2024-07-18 13:35 ==
LOC: LB.ED 11:28
DX: S22.050A Wedge compression fracture of T5-T6 vertebra, initial encounter for closed fracture (principal); I10 Essential (primary) hypertension; K21.9 Gastro-esophageal reflux disease without esophagitis; Z90.49 Acquired absence of other specified parts of digestive tract; Z79.82 Long term (current) use of aspirin; Z79.899 Other long term (current) drug therapy; Z79.891 Long term (current) use of opiate analgesic; Z88.0 Allergy status to penicillin; W18.30XA Fall on same level, unspecified, initial encounter
CPT/HCPCS: 71045; 72128; 72131; 96372; 99284; A9270; J1885

== ENCOUNTER 2024-08-10 17:40 | Emergency (ER) | payer MEDICARE, BC ==
[2024-08-10] MEDS ORDERED: Sodium Chloride 0.9% 10 ML Syringe FLUSH PRN (18:06)
[2024-08-10 18:47] LABS: HEMATOCRIT 37.6 % (37.0-47.0); HEMOGLOBIN 12.4 g/dL (11.5-16.5); MEAN CORPUSCULAR HEMOGLOBIN 28.4 pg (27.0-32.0); MEAN PLATELET VOLUME 11.4 fL (6.0-10.0); RED BLOOD CELL COUNT 4.37 M/uL (3.80-5.80); RED CELL DISTRIBUTION WIDTH 14.5 % (11.0-16.0); WHITE BLOOD CELL COUNT,WBC 10.3 K/uL (4.0-11.0)
[2024-08-10 19:02] LABS: ANION GAP 15.3 mmol/L (5.0-15.0); BUN/CREATININE RATIO 22.7 (6-25); CALCIUM 8.6 mg/dL (8.5-10.1); CARBON DIOXIDE,CO2 23.7 mmol/L (21.0-32.0); CREATININE 0.66 mg/dL (0.55-1.02); EST CRCL DRUG DOSING (CG) 48.74 mL/min; MAGNESIUM 1.6 mg/dL (1.8-2.4); TROPONIN I HIGH SENSITIVITY 29.1 pg/ml (<=60.4)
[2024-08-10 19:35] LABS: INFLUENZA A NAA NEGATIVE (NEGATIVE); INFLUENZA B NAA NEGATIVE (NEGATIVE); RESPIRATORY SYNCYTIAL VIR NAA NEGATIVE (NEGATIVE)
[2024-08-10 19:36] LABS: CORONAVIRUS COVID-19 NAA NEGATIVE (NEGATIVE)
[2024-08-10 20:37] LABS: APPEARANCE,URINE CLEAR (CLEAR); BILIRUBIN,URINE NEGATIVE (NEGATIVE); COLOR,URINE YELLOW; GLUCOSE,URINE NEGATIVE (NEGATIVE); KETONES,URINE TRACE mg/dL (NEGATIVE); PH,URINE 5.5 (5.0-8.0); PROTEIN,URINE TRACE mg/dL (NEGATIVE)
[2024-08-10 20:38] LABS: BACTERIA,URINE MANY /HPF; LEUKOCYTE ESTERASE,URINE TRACE (NEGATIVE); NITRITE,URINE NEGATIVE (NEGATIVE); OCCULT BLOOD,URINE NEGATIVE (NEGATIVE); RBC,URINE 0-5 /HPF; SQUAMOUS EPITHELIAL CELLS,UR FEW /HPF; UROBILINOGEN,URINE 0.2 E.U./dL (0.2-1.0); WBC CLUMPS,URINE OCCASIONAL /HPF
[2024-08-10] MEDS: Levofloxacin/Dextrose 5%-Water 500 MG in Levofloxacin/Dextrose 5%-Water 100 ML IV ONE (20:54)
[2024-08-10] MEDS: Levofloxacin/Dextrose 5%-Water 100 ML IV ONE (20:57)
[2024-08-10] MEDS: Sodium Chloride 0.9% 1,000 ML IV SCH (20:58)
[2024-08-10 22:56] VITALS: BP 117/83; PULSE 113
== END 2024-08-10 22:46 ==
LOC: LB.ED 17:40
DX: N39.0 Urinary tract infection, site not specified (principal); I10 Essential (primary) hypertension; K21.9 Gastro-esophageal reflux disease without esophagitis; Z79.899 Other long term (current) drug therapy; Z79.82 Long term (current) use of aspirin; Z88.0 Allergy status to penicillin
CPT/HCPCS: 0241U; 36415; 70450; 71045; 80048; 81001; 83735; 84145; 84484; 85027; 87086; 93005; 96365; 99284-25; J1956; J7030

== ENCOUNTER 2024-08-11 09:29 | Inpatient (IN) | payer MEDICARE, BC ==
[2024-08-11 10:18] LABS: HEMATOCRIT 39.6 % (37.0-47.0); HEMOGLOBIN 12.9 g/dL (11.5-16.5); MEAN CORPUSCULAR HEMOGLOBIN 28.3 pg (27.0-32.0); MEAN CORPUSCULAR HGB CONC 32.6 g/dL (31.0-35.0); RED BLOOD CELL COUNT 4.56 M/uL (3.80-5.80); RED CELL DISTRIBUTION WIDTH 14.5 % (11.0-16.0); WHITE BLOOD CELL COUNT,WBC 10.1 K/uL (4.0-11.0)
[2024-08-11 10:43] LABS: A/G RATIO 0.9 (0.8-2.0); ALBUMIN 2.9 g/dL (3.4-5.0); ANION GAP 15.5 mmol/L (5.0-15.0); BILIRUBIN TOTAL 0.6 mg/dL (0.0-1.0); BUN/CREATININE RATIO 18.6 (6-25); CALCIUM 8.6 mg/dL (8.5-10.1); CARBON DIOXIDE,CO2 21.8 mmol/L (21.0-32.0); CREATININE 0.97 mg/dL (0.55-1.02); EST CRCL DRUG DOSING (CG) 33.16 mL/min; POTASSIUM,K 4.3 mmol/L (3.5-5.1)
[2024-08-11] MEDS: Morphine 4 MG/ML VIAL IVPUSH ONE ×2 (10:44→19:29)
[2024-08-11 10:51] LABS: TROPONIN I HIGH SENSITIVITY 397.3 pg/ml (<=60.4)
[2024-08-11] MEDS: Sodium Chloride 0.9% 50 ML SDV FLUSH ONE (11:18)
[2024-08-11] MEDS: Iopamidol 612 MG/ML 100 ML Bottle IV SCH (11:19)
[2024-08-11] MEDS: Sodium Chloride 0.9% 1,000 ML IV SCH ×2 (11:20→19:46)
[2024-08-11] MEDS: Heparin Sodium 5,000 Units/ML Vial IVPUSH SCH (12:32)
[2024-08-11] MEDS: Heparin Sodium/D5W 25,000 UNITS/500 ML BAG IV SCH (12:43)
[2024-08-11 12:50] LABS: INR 1.1 (1.0-3.5); PTT,PARTIAL THROMBOPLSTIN TIME 23.6 SECONDS (24.4-33.2)
[2024-08-11 12:52] LABS: PROTHROMBIN TIME 11.9 sec (9.0-11.5)
[2024-08-11] MEDS: LORazepam 2 MG/ML SDV IVPUSH ONE (14:25)
[2024-08-11] MEDS: Heparin Sodium 5,000 Units/ML Vial IVPUSH ONE (19:33)
[2024-08-11] MEDS: Metoprolol Tartrate 25 MG Tab PO SCH (20:18)
[2024-08-11] MEDS: Non-Formulary Medication 1 Each (Brinzolamide/Brimonidine Tart [Simbrinza 1%-0.2% Eye Drop EYEBOTH SCH (20:19)
[2024-08-11] MEDS: Carboxymethylcellulose Sodium 0.5% Ophth Soln 15 ML Bottle EYEBOTH SCH (20:22)
[2024-08-11] MEDS: Ciprofloxacin in D5W 400 MG in Premix Bag 1 BAG IV SCH (20:24)
[2024-08-11] MEDS: Ciprofloxacin in D5W 200 ML ONE (20:26)
[2024-08-11] MEDS: Metoprolol Tartrate 5 MG/5 ML SDV IVPUSH SCH (20:28)
[2024-08-11] MEDS ORDERED: Metoprolol Tartrate 5 MG in Sodium Chloride 0.9% 50 ML IV SCH (20:30)
[2024-08-11] MEDS ORDERED: SIMBRINZA EYEBOTH SCH (20:41)
[2024-08-11] MEDS ORDERED: EYE EYEBOTH SCH (20:41)
[2024-08-11] MEDS: SIMBRINZA EYEBOTH ONE (21:26)
[2024-08-11] MEDS: EYE EYEBOTH ONE (21:26)
[2024-08-11] MEDS: LORazepam 2 MG/ML SDV IVPUSH PRN (21:35)
[2024-08-11] MEDS: Ondansetron 4 MG/2 ML SDV IVPUSH PRN (21:37)
[2024-08-12] MEDS: Morphine 4 MG/ML VIAL IVPUSH PRN (05:31)
[2024-08-12] MEDS: Latanoprost 0.005% Ophth Soln 2.5 ML Bottle EYEBOTH SCH (06:12)
[2024-08-12] MEDS: EYE EYEBOTH SCH (07:46)
[2024-08-12] MEDS: SIMBRINZA EYEBOTH SCH (07:46)
[2024-08-12] MEDS: Heparin Sodium 5,000 Units/ML Vial IVPUSH ONE (08:40)
[2024-08-12] MEDS: Heparin Sodium 5,000 Units/ML Vial ONE (08:41)
[2024-08-12] MEDS: Sodium Chloride 0.9% 10 ML Syringe FLUSH PRN (08:45)
[2024-08-12 09:54] LABS: BUN/CREATININE RATIO 27.1 (6-25); CARBON DIOXIDE,CO2 24.3 mmol/L (21.0-32.0); CREATININE 0.85 mg/dL (0.55-1.02); EST CRCL DRUG DOSING (CG) 37.84 mL/min; POTASSIUM,K 4.3 mmol/L (3.5-5.1)
[2024-08-12] MEDS ORDERED: Furosemide 40 MG/4 ML VIAL IVPUSH ONE (11:03)
[2024-08-12] MEDS: Non-Formulary Medication 1 Each (Carbidopa/Levodopa [Carbidopa-Levodopa 25-250] 1 EACH Tab PO SCH (11:10)
[2024-08-12] MEDS: Hydrochlorothiazide 25 MG Tab PO SCH (11:29)
[2024-08-12] MEDS: Hydrochlorothiazide 25 MG Tab ONE (11:29)
[2024-08-12] MEDS ORDERED: Furosemide 20 MG/2 ML VIAL IVPUSH ONE (11:30)
[2024-08-12] MEDS: Metoprolol Tartrate 25 MG Tab PO ONE (16:56)
[2024-08-12] MEDS ORDERED: Metoprolol Tartrate 25 MG Tab PO SCH (18:00)
[2024-08-12] MEDS: Sodium Chloride 0.9% 1,000 ML IV SCH (20:30)
[2024-08-12] MEDS: Metoprolol Tartrate 25 MG Tab PO SCH (20:35)
[2024-08-12] MEDS: Norepinephrine Bit/0.9 % NaCl 4 MG in Premix Bag 1 BAG IV SCH (21:46)
[2024-08-13 09:12] LABS: MAGNESIUM 1.5 mg/dL (1.8-2.4); PHOSPHORUS 2.2 mg/dL (2.5-4.9)
[2024-08-13 09:24] LABS: HEMATOCRIT 35.2 % (37.0-47.0); HEMOGLOBIN 11.2 g/dL (11.5-16.5); MEAN CORPUSCULAR HEMOGLOBIN 28.8 pg (27.0-32.0); MEAN CORPUSCULAR HGB CONC 31.8 g/dL (31.0-35.0); MEAN PLATELET VOLUME 10.5 fL (6.0-10.0); RED BLOOD CELL COUNT 3.89 M/uL (3.80-5.80); RED CELL DISTRIBUTION WIDTH 15.1 % (11.0-16.0); WHITE BLOOD CELL COUNT,WBC 13.1 K/uL (4.0-11.0)
[2024-08-13] MEDS ORDERED: Magnesium Citrate Solution 296 ML Bottle PO ONE (14:02)
[2024-08-13] MEDS ORDERED: Sodium Phosphate 15 mMole/5 ML SDV IV SCH (14:15)
[2024-08-13 14:23] LABS: ALBUMIN 2.4 g/dL (3.4-5.0); BILIRUBIN DIRECT 0.1 mg/dL (0.0-0.3); BILIRUBIN INDIRECT 0.2 mg/dL (<= 0.7); BILIRUBIN TOTAL 0.3 mg/dL (0.0-1.0); PROTEIN TOTAL,TP 4.8 g/dL (6.4-8.2)
[2024-08-13] MEDS: Magnesium Sulfat/D5W 1GM/100ML 1 GM in Premix Bag 1 BAG IV ONE (14:40)
[2024-08-13] MEDS: Sodium Phosphate 30 MMOLE in Sodium Chloride 0.9% 250 ML IV ONE (16:03)
[2024-08-13] MEDS: Piperacillin/Tazobactam 4.5 GM in Sodium Chloride 0.9% 100 ML IV SCH (16:37)
[2024-08-13] MEDS: Furosemide 20 MG Tab PO ONE (17:46)
[2024-08-14 08:43] LABS: BASOPHILS ABSOLUTE AUTO 0.03 K/uL (0.02-0.10); BASOPHILS PERCENT AUTO 0.3 % (0.0-0.5); EOSINOPHILS ABSOLUTE AUTO 0.32 K/uL (0.04-0.40); EOSINOPHILS PERCENT AUTO 2.9 % (1.0-5.0); HEMATOCRIT 33.1 % (37.0-47.0); HEMOGLOBIN 10.7 g/dL (11.5-16.5); LYMPHOCYTES ABSOLUTE AUTO 1.78 K/uL (1.50-4.00); LYMPHOCYTES PERCENT AUTO 16.2 % (20.0-40.0); MEAN CORPUSCULAR HEMOGLOBIN 28.2 pg (27.0-32.0); MEAN CORPUSCULAR HGB CONC 32.3 g/dL (31.0-35.0); MEAN CORPUSCULAR VOLUME 87 fL (76-96); MONOCYTES ABSOLUTE AUTO 1.11 K/uL (0.20-0.80); MONOCYTES PERCENT AUTO 10.1 % (3.0-10.0); NEUTROPHILS ABSOLUTE AUTO 7.72 K/uL (2.00-7.50); NEUTROPHILS PERCENT AUTO 70.5 % (45.0-70.0); PLATELET COUNT,PLT 272 K/uL (150-500); RED CELL DISTRIBUTION WIDTH 14.9 % (11.0-16.0)
[2024-08-14 09:07] LABS: ANION GAP 12.6 mmol/L (5.0-15.0); BUN/CREATININE RATIO 18.4 (6-25); CALCIUM 7.5 mg/dL (8.5-10.1); CARBON DIOXIDE,CO2 24.4 mmol/L (21.0-32.0); CREATININE 0.98 mg/dL (0.55-1.02); EST CRCL DRUG DOSING (CG) 32.82 mL/min
[2024-08-14] MEDS: Pantoprazole 40 MG Vial IVPUSH SCH (09:47)
[2024-08-14] MEDS ORDERED: NS + KCl 20mEq/L 1,000 ML IV SCH ×2 (10:15→21:00)
[2024-08-14] MEDS: Apixaban 5 MG Tab PO ONE (11:54)
[2024-08-14] MEDS: Bisacodyl 5 MG Tab PO SCH (15:32)
[2024-08-14] MEDS: Bisacodyl 5 MG Tab ONE (15:36)
[2024-08-14] MEDS: NS + KCl 20mEq/L 1,000 ML IV SCH (20:30)
[2024-08-14] MEDS: Apixaban 2.5 MG Tab PO SCH (20:37)
[2024-08-15 08:40] LABS: ALBUMIN 2.4 g/dL (3.4-5.0); ANION GAP 10.9 mmol/L (5.0-15.0); BILIRUBIN TOTAL 0.6 mg/dL (0.0-1.0); CARBON DIOXIDE,CO2 25.5 mmol/L (21.0-32.0); CREATININE 0.84 mg/dL (0.55-1.02); EST CRCL DRUG DOSING (CG) 38.29 mL/min; POTASSIUM,K 3.4 mmol/L (3.5-5.1); PROTEIN TOTAL,TP 4.9 g/dL (6.4-8.2)
[2024-08-15] MEDS: Bisacodyl 10 MG Supp RECTAL SCH (09:41)
[2024-08-15 10:06] LABS: INFLUENZA A NAA NEGATIVE (NEGATIVE); INFLUENZA B NAA NEGATIVE (NEGATIVE)
[2024-08-15 10:12] LABS: CORONAVIRUS COVID-19 NAA NEGATIVE (NEGATIVE)
[2024-08-16 08:25] LABS: POTASSIUM,K 3.8 mmol/L (3.5-5.1)
[2024-08-16] MEDS: Furosemide 40 MG/4 ML VIAL IVPUSH ONE (10:47)
[2024-08-16] MEDS: Piperacillin/Tazobactam 4.5 GM in Sodium Chloride 0.9% 100 ML IV SCH (14:43)
[2024-08-16] MEDS: Furosemide 20 MG/2 ML VIAL IVPUSH ONE (17:30)
[2024-08-17] MEDS: Furosemide 40 MG/4 ML VIAL IVPUSH ONE (10:27)
[2024-08-17] MEDS: Acetaminophen 325 MG Tab PO SCH (15:36)
[2024-08-17] MEDS: Diazepam 5 MG Tab PO PRN (19:58)
[2024-08-17] MEDS: Metoprolol Tartrate 25 MG Tab PO SCH (19:59)
[2024-08-17] MEDS: Acetaminophen/HYDROcodone 325-5 MG Tab PO PRN (23:13)
[2024-08-18] MEDS: Pantoprazole 40 MG Tab.CR PO SCH (08:03)
[2024-08-18 09:18] LABS: ANION GAP 6.7 mmol/L (5.0-15.0); CALCIUM 8.4 mg/dL (8.5-10.1); CARBON DIOXIDE,CO2 32.7 mmol/L (21.0-32.0); CREATININE 0.57 mg/dL (0.55-1.02); EST CRCL DRUG DOSING (CG) 56.43 mL/min
[2024-08-18 09:21] LABS: POTASSIUM,K 2.4 mmol/L (3.5-5.1)
[2024-08-18] MEDS: Potassium Chloride 20 MEQ Tab.ER PO SCH (10:13)
[2024-08-18] MEDS: Magnesium Oxide 400 MG Tab PO SCH (11:31)
[2024-08-18] MEDS ORDERED: Bisacodyl 5 MG Tab PO PRN (18:35)
[2024-08-19] MEDS: Ondansetron 4 MG Tab.DIS PO PRN (05:38)
[2024-08-19 09:41] LABS: MAGNESIUM 1.6 mg/dL (1.8-2.4)
[2024-08-19 09:49] LABS: POTASSIUM,K 2.9 mmol/L (3.5-5.1)
[2024-08-20 07:22] VITALS: BP 155/70; PULSE 68
[2024-08-20 08:13] LABS: BASOPHILS ABSOLUTE AUTO 0.02 K/uL (0.02-0.10); BASOPHILS PERCENT AUTO 0.3 % (0.0-0.5); EOSINOPHILS ABSOLUTE AUTO 0.27 K/uL (0.04-0.40); EOSINOPHILS PERCENT AUTO 4.5 % (1.0-5.0); HEMATOCRIT 36.7 % (37.0-47.0); HEMOGLOBIN 11.6 g/dL (11.5-16.5); LYMPHOCYTES ABSOLUTE AUTO 0.95 K/uL (1.50-4.00); MEAN CORPUSCULAR HEMOGLOBIN 27.6 pg (27.0-32.0); MEAN CORPUSCULAR HGB CONC 31.6 g/dL (31.0-35.0); MEAN CORPUSCULAR VOLUME 87 fL (76-96); MEAN PLATELET VOLUME 9.7 fL (6.0-10.0); MONOCYTES ABSOLUTE AUTO 0.55 K/uL (0.20-0.80); MONOCYTES PERCENT AUTO 9.2 % (3.0-10.0); NEUTROPHILS ABSOLUTE AUTO 4.16 K/uL (2.00-7.50); PLATELET COUNT,PLT 264 K/uL (150-500); RED CELL DISTRIBUTION WIDTH 15.1 % (11.0-16.0)
[2024-08-20 08:41] LABS: ANION GAP 6.4 mmol/L (5.0-15.0); BUN/CREATININE RATIO 10.7 (6-25); CALCIUM 8.7 mg/dL (8.5-10.1); CARBON DIOXIDE,CO2 31.1 mmol/L (21.0-32.0); CREATININE 0.75 mg/dL (0.55-1.02); EST CRCL DRUG DOSING (CG) 42.89 mL/min; POTASSIUM,K 3.5 mmol/L (3.5-5.1)
[2024-08-21] MEDS ORDERED: Potassium Chloride 20 MEQ Tab.ER PO SCH (08:00)
== END 2024-08-20 11:00 | disposition swing bed (61) | DRG 175 ==
LOC: LB.ED 09:29 → LB.MS 12:27
PROVIDERS: ADMIT Surgery; ATTEND Family Medicine
PROC: 3E033XZ Introduction of Vasopressor into Peripheral Vein, Percutaneous Approach (ICD-10-PCS; principal; 2024-08-12)
DX: I26.09 Other pulmonary embolism with acute cor pulmonale (principal); I21.4 Non-ST elevation (NSTEMI) myocardial infarction; I10 Essential (primary) hypertension; J18.9 Pneumonia, unspecified organism; N39.0 Urinary tract infection, site not specified; Z66 Do not resuscitate; H54.7 Unspecified visual loss; K21.9 Gastro-esophageal reflux disease without esophagitis; M19.90 Unspecified osteoarthritis, unspecified site; M54.9 Dorsalgia, unspecified; G89.29 Other chronic pain; G43.909 Migraine, unspecified, not intractable, without status migrainosus; G20.A1 Parkinson's disease without dyskinesia, without mention of fluctuations; F02.80 Dementia in other diseases classified elsewhere, unspecified severity, without behavioral disturbance, psychotic disturbance, mood disturbance, and anxiety; Z96.659 Presence of unspecified artificial knee joint; K82.8 Other specified diseases of gallbladder; K59.00 Constipation, unspecified; E87.6 Hypokalemia; N28.89 Other specified disorders of kidney and ureter; I11.0 Hypertensive heart disease with heart failure; I50.9 Heart failure, unspecified; R53.81 Other malaise; I95.9 Hypotension, unspecified; E83.39 Other disorders of phosphorus metabolism; E16.2 Hypoglycemia, unspecified; G25.81 Restless legs syndrome; Z88.0 Allergy status to penicillin; Z79.82 Long term (current) use of aspirin; Z79.899 Other long term (current) drug therapy; Z98.49 Cataract extraction status, unspecified eye; Z90.89 Acquired absence of other organs; Z90.49 Acquired absence of other specified parts of digestive tract
CPT/HCPCS: 0240U; 36415; 71045; 71260; 74177; 80048; 80053; 80076; 83735; 83880; 84100; 84132; 84145; 84295; 84484; 85025; 85027; 85610; 85730; 92526-GN; 92610-GN; 93005; 96361; 96374; 97161-GP; 97530-GP; 99223; 99232; 99233; 99285-25; A9270-GY; C1758; J0744; J1644; J1940; J2060; J2270; J2405; J2470; J2543; J3475; J3480; J3490; Q0162; Q9967; U0002

== ENCOUNTER 2024-08-20 10:20 | Inpatient (IN) | payer MEDICARE, BC ==
[2024-08-20] MEDS ORDERED: Ondansetron 4 MG Tab.DIS PO PRN (10:56)
[2024-08-20] MEDS ORDERED: Sodium Chloride 0.9% 10 ML Syringe FLUSH PRN (10:56)
[2024-08-20] MEDS: Acetaminophen 325 MG Tab PO SCH (13:00)
[2024-08-20] MEDS: CARBIDOPA LEVODOPA PO SCH (13:00)
[2024-08-20] MEDS: Bisacodyl 5 MG Tab PO PRN (13:01)
[2024-08-20] MEDS: SIMBRINZA EYEBOTH SCH (13:02)
[2024-08-20] MEDS: EYE EYEBOTH SCH (13:02)
[2024-08-20] MEDS: Carboxymethylcellulose Sodium 0.5% Ophth Soln 15 ML Bottle EYEBOTH SCH (13:03)
[2024-08-20] MEDS: Metoprolol Tartrate 25 MG Tab PO SCH (20:38)
[2024-08-20] MEDS: Apixaban 2.5 MG Tab PO SCH (20:38)
[2024-08-20] MEDS: Magnesium Oxide 400 MG Tab PO SCH (20:39)
[2024-08-20] MEDS: Latanoprost 0.005% Ophth Soln 2.5 ML Bottle EYEBOTH SCH (20:47)
[2024-08-21] MEDS: Potassium Chloride 20 MEQ Tab.ER PO SCH (08:32)
[2024-08-21] MEDS: Pantoprazole 40 MG Tab.CR PO SCH (08:33)
[2024-08-21] MEDS: Tuberculin, PPD 5 Units/0.1 ML 1 ML MDV IDERM ONE (09:16)
[2024-08-21] MEDS: Acetaminophen 500 MG Tab ONE (14:00)
[2024-08-21] MEDS: Acetaminophen 650 MG Tab.ER ONE (14:01)
[2024-08-22] MEDS: Zinc Oxide 20% Oint 56.7 GM Tube TOP PRN (06:44)
[2024-08-23 09:11] LABS: ANION GAP 7.5 mmol/L (5.0-15.0); BUN/CREATININE RATIO 12.1 (6-25); CALCIUM 8.9 mg/dL (8.5-10.1); CARBON DIOXIDE,CO2 28.2 mmol/L (21.0-32.0); CREATININE 0.58 mg/dL (0.55-1.02); EST CRCL DRUG DOSING (CG) 55.46 mL/min; POTASSIUM,K 3.7 mmol/L (3.5-5.1)
[2024-08-24] MEDS: Morphine 4 MG/ML VIAL IVPUSH ONE (05:03)
[2024-08-24 08:51] LABS: ANION GAP 11.1 mmol/L (5.0-15.0); BUN/CREATININE RATIO 11.3 (6-25); CALCIUM 8.6 mg/dL (8.5-10.1); CARBON DIOXIDE,CO2 27.8 mmol/L (21.0-32.0); CREATININE 0.71 mg/dL (0.55-1.02); EST CRCL DRUG DOSING (CG) 45.31 mL/min; POTASSIUM,K 3.9 mmol/L (3.5-5.1); TROPONIN I HIGH SENSITIVITY 14.5 pg/ml (<=60.4)
[2024-08-25] MEDS: Acetaminophen/HYDROcodone 325-5 MG Tab PO PRN (01:57)
[2024-08-25] MEDS: diphenhydrAMINE 25 MG Cap PO ONE (22:04)
[2024-08-25] MEDS: Melatonin 3 MG Tab PO ONE (22:33)
[2024-08-26] MEDS: Lisinopril 5 MG Tab PO SCH (09:46)
[2024-08-26] MEDS: Metoprolol Succinate 25 MG Tab.ER PO SCH (19:41)
[2024-08-27 11:08] VITALS: BP 152/82; PULSE 67
[2024-09-04] MEDS ORDERED: Tuberculin, PPD 5 Units/0.1 ML 1 ML MDV IDERM ONE (08:00)
== END 2024-08-27 11:00 | disposition home or self-care (01) | DRG 947 ==
LOC: LB.MS 10:20
PROVIDERS: ADMIT Surgery; ATTEND Surgery
DX: R53.81 Other malaise (principal); I21.4 Non-ST elevation (NSTEMI) myocardial infarction; I27.82 Chronic pulmonary embolism; R53.1 Weakness; R53.83 Other fatigue; G31.84 Mild cognitive impairment of uncertain or unknown etiology; I50.9 Heart failure, unspecified; I11.0 Hypertensive heart disease with heart failure
CPT/HCPCS: 36415; 80048; 83880; 84484; 86580; 87493; 92526-GN; 93005; 97110-GP; 97530-GP; A9270-GY; J2270